=== PATIENT | female | born 1930 | race Caucasian/White ===

== ENCOUNTER → 2016-12-22 | Outpatient (CLI) | payer MEDICARE ==
[~2016-12-22] MED LIST: /PANT40TA OR; ALLO300T OR; ASPI325T28 PO; ATEN25TA OR; BABY81CH OR; CEFT1INJ3 INJ; LASI40TA OR; LASI40TA PO; LEVA1TAB2 PO; LEVA250T IV; Levofloxacin IV; METF500T13 PO; PANT40TA2 PO; PLAV1TAB2 PO; PLAV75TA2 OR; PRED5TA PO; PRED5TAB PO; VITA200038 PO; ZOLP10TA2 PO; ZYLO100T OR
--- NOTE | 2016-12-22 17:25 | REP ---
CT of the chest without IV contrast: Comparisons are 10/14/2015 02/28/2011. There is a spiculated nodule in the apex of the left lung, not significantly changed from 10/14/2015 is slightly larger than 02/28/2011. There is a new 5 mm density posteriorly in the left upper lobe on image 25, not present on the prior studies. There is a subtle ground-glass density in the superior segment of the left lower lobe on image 26, unchanged from 10/14/2015, not present on 2010. There is a 5 mm nodule in the left lower lobe on image 37, unchanged from 10/14/2015 but not present on 02/28/2011. There is a new focal density in the posterior basilar segment right lower lobe on image 63 measuring 3.1 cm, nonspecific, mass versus subsegmental infiltrate versus atelectasis. There is no mediastinal or axillary add an the. The study is insensitive for hilar adenopathy in the absence of IV contrast. Thoracic aorta is unremarkable. Cardiac size is normal. Upper abdomen: There is a focal subcapsular 2.4 cm low density lesion in the dome of the liver laterally, not present previously. There are multiple small gallbladder calculi. There are calcifications in the body of the pancreas, unchanged, possibly from prior pancreatitis. The pancreas is otherwise unremarkable. Visualized portion of the spleen is unremarkable. There is no adrenal mass. Impression: Lung nodules as described. The new hypodensity in the dome of the liver laterally. Signed by Jeremias Jordan MD 12/22/2016 05:16 P
== END ==
LOC: M RAD 14:46
PROVIDERS: ATTEND Internal Medicine Pulmonary Disease
DX: R91.8 Other nonspecific abnormal finding of lung field (principal); K76.89 Other specified diseases of liver

== ENCOUNTER → 2017-02-12 | Outpatient (CLI) | payer MEDICARE ==
[2017-02-12 16:09] LABS: MEAN CORPUSCULAR HGB CONC 31.7 g/dl (32.0-36.5); MEAN CORPUSCULAR VOLUME 94.4 fl (80.0-96.0); PLATELET COUNT, AUTOMATED 271 10^3/uL (150-450); RED CELL DISTRIBUTION WIDTH 14.9 % (11.5-14.5)
[2017-02-12 16:33] LABS: ALBUMIN 3.4 GM/DL (3.2-5.2); ALBUMIN/GLOBULIN RATIO 1.13 (1.00-1.93); BILIRUBIN,TOTAL 0.7 MG/DL (0.2-1.0); CALCIUM LEVEL 8.8 MG/DL (8.8-10.2); CREATININE FOR GFR 1.23 MG/DL (0.55-1.02); GLOMERULAR FILTRATION RATE 43.9 (>32); PERCENT SATURATION 17.6 % (13.2-45.0); POTASSIUM SERUM 4.2 MEQ/L (3.5-5.1); THYROXINE (T4) 6.7 UG/DL (4.5-12.0); TOTAL PROTEIN 6.4 GM/DL (6.4-8.2)
== END ==
LOC: M LAB 14:10
PROVIDERS: ATTEND Family Medicine
DX: D64.9 Anemia, unspecified (principal); E03.9 Hypothyroidism, unspecified; Z79.899 Other long term (current) drug therapy

== ENCOUNTER 2017-02-23 12:06 | Inpatient (IN) | payer MEDICARE ==
[~2017-02-23] VITALS: Ht 162.6 cm; Wt 71.1 kg
[2017-02-23] MEDS: NYSTATIN 100,000 UNITS/GM TOPICAL PWD 15 GM TOP SCH (09:00)
[2017-02-23] MEDS ORDERED: NS 1,000 ML IV SCH ×2 (12:15→19:00)
[2017-02-23] MEDS ORDERED: NS 500 ML IV ONE ×2 (12:15→14:15)
[2017-02-23] MEDS ORDERED: LORA1TAB12 PO (12:37)
[2017-02-23] MEDS ORDERED: CIPR500T3 PO (12:37)
[2017-02-23] MEDS ORDERED: DONETAB5 PO (12:37)
[2017-02-23] MEDS ORDERED: PERCOCET PO (12:37)
--- NOTE | 2017-02-23 12:40 | REP ---
Clinical: Altered mental status. Comparison: 10/16/2013. Findings: Age-related atrophy and microvascular ischemic changes are appreciated. The ventricles and sulci are symmetric. Swan-white differentiation is maintained. There is no evidence for acute intracranial hemorrhage, mass/mass effect, pathology or infarction. No extra-axial fluid collection. Calvarium is intact. Paranasal sinuses and mastoid air cells are clear. Impression: Age related atrophy and microvascular ischemic changes. No acute intracranial hemorrhage, infarction, or mass/mass effect. Signed by Yaw Conti MD 02/23/2017 12:31 P
[2017-02-23 12:58] LABS: MEAN CORPUSCULAR HEMOGLOBIN 29.6 pg (27.0-33.0); MEAN CORPUSCULAR VOLUME 92.5 fl (80.0-96.0); PLATELET COUNT, AUTOMATED 260 10^3/uL (150-450); RED CELL DISTRIBUTION WIDTH 14.2 % (11.5-14.5)
[2017-02-23 13:00] LABS: VENOUS BASE EXCESS 0.2 (-2.0-2.0); VENOUS O2 SATURATION 42.3 % (60.0-80.0); VENOUS PARTIAL PRESSURE CO2 51.4 mmHg (38.0-50.0); VENOUS STANDARD HCO3 23.4 MEQ/L; VENOUS TOTAL CO2 28.4 MEQ/L (24.0-28.0)
[2017-02-23 13:20] LABS: OSMOLALITY SERUM 291 MOSM/KG (280-301)
--- NOTE | 2017-02-23 13:22 | REP ---
Clinical: Trauma. Technique: Frontal view of the pelvis with neutral and frog lateral views of the right hip. Comparison: 03/08/2016. Findings: Age-related degenerative changes to the lumbosacral spine, pelvis and hips similar to prior examination. No acute fracture or dislocation. Impression: Degenerative changes. No acute fracture or dislocation. Signed by Yaw Conti MD 02/23/2017 01:13 P
--- NOTE | 2017-02-23 13:23 | REP ---
Clinical: Altered mental status and fall/trauma . Comparison: 10/14/2015 . Findings: The mediastinum and cardiac silhouette are stable and within normal limits for portable technique. Evidence of prior sternotomy and CABG/coronary stenting . The lung dickson are clear without acute consolidation, effusion, or pneumothorax. Skeletal structures are intact. Impression: No acute cardiopulmonary process appreciated. Signed by Yaw Conti MD 02/23/2017 01:14 P
[2017-02-23] MEDS ORDERED: ASPI1TAB PO (13:27)
[2017-02-23 13:36] LABS: ALBUMIN 3.2 GM/DL (3.2-5.2); ALBUMIN/GLOBULIN RATIO 1.14 (1.00-1.93); ALKALINE PHOSPHATASE 55 U/L (45-117); ALT/SGPT 12 U/L (12-78); ANION GAP 10 MEQ/L (8-16); AST/SGOT 15 U/L (7-37); BILIRUBIN,DIRECT 0.2 MG/DL (0.0-0.2); BILIRUBIN,TOTAL 0.9 MG/DL (0.2-1.0); BLOOD UREA NITROGEN 10 MG/DL (7-18); CALCIUM LEVEL 8.8 MG/DL (8.8-10.2); CARBON DIOXIDE LEVEL 26 MEQ/L (21-32); CHLORIDE LEVEL 106 MEQ/L (98-107); CREATININE FOR GFR 0.97 MG/DL (0.55-1.02); GLOMERULAR FILTRATION RATE 57.7 (>32); GLUCOSE, FASTING 111 MG/DL (83-110); POTASSIUM SERUM 3.7 MEQ/L (3.5-5.1); SODIUM LEVEL 142 MEQ/L (136-145)
[2017-02-23 14:07] LABS: ADD MANUAL DIFFER YES; BLASTS POS FLAG; DIFF SLIDE NUMBER 113; POSITIVE DIFF POS FLAG; POSITIVE MORPH POS FLAG; WBC SCAT POS FLAG; WHITE BLOOD COUNT 20.6 10^3/uL (4.0-10.0)
[2017-02-23 14:17] LABS: SMUDGE CELLS 2+
[2017-02-23 14:19] LABS: ANISOCYTOSIS 1+
[2017-02-23] MEDS ORDERED: ISOVUE-370 76% 100ML VIAL (Q9967) As Ordered ONE (16:58)
--- NOTE | 2017-02-23 17:32 | REP ---
Clinical: Acute groin pain. Technique: Axial contrast enhanced images from the lung bases to the pubic symphysis using 100 ml Isovue 370 intravenous contrast material with coronal and sagittal re-formations. Findings: Lung bases demonstrate minimal right basilar atelectasis. Fatty infiltration to the liver noted with 2.5 cm hemangioma at the periphery approaching the dome. Spleen, pancreas, bilateral adrenal glands and right kidney are normal. Left kidney demonstrates mild chronic appearing cortical scarring. No hydronephrosis or nephrolithiasis. Cholelithiasis noted without acute cholecystitis. The enteric system is without obstruction or acute inflammatory process. Scattered sigmoid diverticula noted without acute diverticulitis. Pelvis demonstrates normal bladder and evidence for prior hysterectomy. Atherosclerotic changes of the aorta without aneurysm or dissection. No ascites. No free air. No obvious adenopathy. No evidence for inguinal adenopathy or hernia. Skeletal structures demonstrate degenerative changes without focal osseous abnormality. Impression: 1. Mild right basilar atelectasis. 2. Cholelithiasis. 3. 2.5 cm hepatic hemangioma. 4. Further chronic changes as described above. No acute abdominopelvic pathology appreciated. Signed by Yaw Conti MD 02/23/2017 05:23 P
[2017-02-23] MEDS ORDERED: PATIENT COMMENT (18:30)
[2017-02-23] MEDS ORDERED: DEXTROSE 50% 50 ML SYRINGE IV PRN (18:45)
[2017-02-23] MEDS ORDERED: ONDANSETRON 4MG/2ML VIAL (J2405) IV PRN (18:45)
[2017-02-23] MEDS ORDERED: GLUCAGON FOR INJ 1 MG VIAL (J1610) SC PRN (18:45)
[2017-02-23] MEDS ORDERED: GLUCOSE 4 GM CHEW TABLET PO PRN (18:45)
[2017-02-23] MEDS ORDERED: ACETAMINOPHEN TAB 650MG DOSE (2X325MG) PO PRN (18:45)
[2017-02-23 19:37] LABS: METHADONE URINE NEGATIVE (NEGATIVE)
[2017-02-23] MEDS: HumaLOG INSULIN (NovoLOG) PER UNIT SC SCH (21:00)
[2017-02-23 22:01] VITALS: BP 163/72
[2017-02-23] MEDS: SENOKOT S TAB PO SCH (22:37)
[2017-02-23] MEDS: zolPIDEM TARTRATE 10MG TAB PO SCH (22:37)
[2017-02-23] MEDS: CEFTRIAXONE SOD 1 GM in APPROPRIATE DILUENT 1 EA IV SCH (22:39)
[2017-02-23 23:36] VITALS: BP 121/56
[2017-02-24] VITALS (14 sets, daily range): BP systolic 132–145; BP diastolic 60–66; O2SAT 95–97
[2017-02-24] MEDS: OLOPATADINE 0.1% OPHTH SOL 5ML(PATANOL) OU SCH ×3 (00:39→17:32)
--- NOTE | 2017-02-24 02:09 | HPE ---
DATE OF ADMISSION: 02/23/2017 PRIMARY CARE PROVIDER: Dr. Cesar Carter. SUPERVISOR CELL OPERATION: Dr. Mcdowell. EXTRUDER: Dr. Delvalle and Dr. Tovar at [facility]. CHIEF COMPLAINT: Altered mental status. HISTORY OF PRESENT ILLNESS: This is an 86-year-old female patient with underlying medical history of chronic lymphocytic leukemia, chronically leukocytosis in the 20s, diabetes type 2 on metformin, coronary arterial disease with coronary artery bypass graft (CABG) years ago and seven stents, polymyalgia rheumatica, fibromyalgia, gout, diastolic congestive heart failure, transient ischemic attack (TIA), gastroesophageal reflux disease (GERD), hypertension, dyslipidemia, and also obstructive sleep apnea. Baseline patient ambulating intermittently with a walker, lives at home alone with daughter 10 minutes away. Her 3 years ago. Patient also receives Meals On Wheels and also microwaves her food, able to take care of her showers and toilets and dressing. As per family, over the past 3 weeks, patient has been progressively getting weaker and sleeping a lot more. Also eating less. Furthermore, patient has been talking a lot about her , stating that she has conversations with her . In the emergency room, patient reported having conversations with her once every 3-4 weeks since he has , but as per family all this has started about the past 3 weeks. Earlier today, in the morning, patient was not answering her calls and she was found down on the floor in the kitchen at about 10 a.m. Patient stated that she did not fall, she just felt tired and subsequently she laid on the floor and she also stated that her , who has 3 years ago in February as well, told her to lay on the floor. Patient denies any trauma or injury, but for the past 2 weeks has been reporting right groin pain, worsened with movement, relieved with rest. Patient has also been sitting a lot on the chair. Furthermore, patient stated that her is actually in [place] for the past 2-3 weeks. When I approached the patient regarding that, patient just stated that her 3 years ago, patient was speechless and a bit confused. Denies history of seizure or any previous episode. No focal weakness. Denies any chest pain, pressure or discomfort, fevers or chills. Emergency department (ED) noted foul-smelling urine. Denies any fevers, chills, sick contact, chest pain, pressure or discomfort, nausea, vomiting, abdominal pain, diarrhea, constipation. No other weakness reported. PAST MEDICAL HISTORY: 1. Obstructive sleep apnea on continuous positive airway pressure (CPAP) at home. 2. Chronic lymphocytic leukemia (CLL). 3. Diabetes type 2. 4. Coronary arterial disease with CABG and stents. 5. Polymyalgia rheumatica. 6. Fibromyalgia. 7. Gout. 8. Diastolic congestive heart failure. 9. History of TIA. 10. GERD. 11. Hypertension. 12. Dyslipidemia. PAST SURGICAL HISTORY: 1. CABG. 2. Hysterectomy. 3. Appendectomy. 4. Cardiac stents several times, all at [facility]. SOCIAL HISTORY: Former smoker, quit many years ago. Denies illicit drug use or alcohol use. FAMILY HISTORY: Noncontributory. ALLERGIES: To STATIN. REVIEW OF SYSTEMS: Reported right groin pain. All other review of systems negative. In the emergency room, patient was able to ambulate. HOME MEDICATIONS: - Plavix 75 mg by mouth daily - donepezil 5 mg by mouth daily - Lasix 40 mg by mouth daily - Ativan 1 mg by mouth as needed - metformin 500 mg by mouth daily - Protonix 40 mg by mouth daily - Ambien 10 mg by mouth nightly PHYSICAL EXAMINATION: VITAL SIGNS: Temperature 97.5, pulse 84, respirations 18, blood pressure 165/85, pulse oximetry 93% on room air. GENERAL: Patient alert, oriented times three in no acute distress. HEENT: Normocephalic, atraumatic. PULMONARY: Bilaterally clear to auscultation. CARDIAC: Regular S1, S2. ABDOMEN: Soft, nontender, positive bowel sounds. EXTREMITIES: Bilateral upper extremity symmetrical strength. Bilateral lower extremity seems a bit weaker. No edema bilateral lower extremities. NEUROLOGICAL: Cranial nerves II-XII grossly intact. Motor strength seems to be symmetrical bilaterally. Sensation to light touch intact. Finger to nose intact. PSYCHIATRIC: Patient denies depression. Reports feeling sad that her has . EKG sinus rhythm at 82, no ST segment changes. CT of the head within normal limits. LABORATORY: WBC 20.6, hemoglobin and hematocrit 13.1/40.9, platelets 260. Chemistry: Sodium 142, potassium 3.7, chloride 106, bicarbonate 26, BUN 10, creatinine 0.91. Ammonia negative. TSH negative. ASSESSMENT AND PLAN: This is an 86-year-old female patient with underlying medical history of obstructive sleep apnea on continuous positive airway pressure (CPAP), chronic lymphocytic leukemia (CLL), diabetes type 2 on metformin, non-insulin dependent, coronary arterial disease with coronary artery bypass graft (CABG) and stents, polymyalgia rheumatica, fibromyalgia, gout, diastolic congestive heart failure, questionable history of transient ischemic attack (TIA), gastroesophageal reflux disease (GERD), hypertension, dyslipidemia, found down on the floor. Denies history of falling, with altered mental status and delusional thoughts. 1. Altered mental status. Possible encephalopathy secondary to urinary tract infection given patient's urine is borderline positive versus delusional thoughts and delirium associated with dementia versus TIA, but symptom is highly inconsistent with TIA. Case discussed with Dr. Bobby and Dr. Reddy. Telemetry monitoring, neurologic checks, MRI. Will give the patient a trial of Rocephin, followup cultures. Intravenous (IV) fluids for gentle hydration. Will monitor closely. Thyroid function appreciated. If patient's condition is agitated, will give the patient, as per Dr. Bobby, Haldol 1 mg by mouth twice a day or will consider Risperdal as well if Haldol is ineffective. Will hold benzodiazepine at this time. Monitor patient closely. Will get urine toxicology (U-tox). 2. CLL. Baseline leukocytosis. Continue to monitor. 3. Type 2 diabetes. Holding all medication. Will give insulin according to protocol if needed. Consistent carbohydrate diet. 4. Coronary arterial disease with history of stents and CABG. Will get records from [facility] given will get MRI for the patient will require stent positions that information from [facility]. Will obtain old records. Continue Plavix. Monitor blood pressure. Adjust as needed. 5. Urinary tract infection (UTI). Continue Rocephin. Followup cultures. 6. Dementia. Continue home medication. 7. Polymyalgia rheumatica and fibromyalgia. Continue to monitor. Pain medication as needed. 8. Diastolic congestive heart failure. Holding Lasix given patient is a bit hypovolemic at this time, is likely due to dehydration. Will restart as needed. Strict intake and output (I and O), daily weight. 9. GERD. Continue proton pump inhibitor (PPI). 10. Hypertension. Monitor blood pressure. 11. Dyslipidemia. Diet control, outpatient followup. 12. Deep venous thrombosis (DVT) prophylaxis. Lovenox subcutaneously. DISPOSITION PLANNING: Pending clinical improvement, social work, physical therapy. Will get additional workup including U-tox, RPR, MRI, neurologic checks, telemetry monitoring.
[2017-02-24 05:22] LABS: MEAN CORPUSCULAR HEMOGLOBIN 29.5 pg (27.0-33.0); MEAN CORPUSCULAR HGB CONC 31.9 g/dl (32.0-36.5); MEAN CORPUSCULAR VOLUME 92.4 fl (80.0-96.0); PLATELET COUNT, AUTOMATED 251 10^3/uL (150-450); RED CELL DISTRIBUTION WIDTH 14.4 % (11.5-14.5)
[2017-02-24 05:27] LABS: ADD MANUAL DIFFER YES; BLASTS POS FLAG; DIFF SLIDE NUMBER 73; POSITIVE DIFF POS FLAG; POSITIVE MORPH POS FLAG; WBC SCAT POS FLAG; WHITE BLOOD COUNT 16.7 10^3/uL (4.0-10.0)
[2017-02-24 05:40] LABS: ALBUMIN 2.6 GM/DL (3.2-5.2); ALBUMIN/GLOBULIN RATIO 0.96 (1.00-1.93); BILIRUBIN,TOTAL 0.8 MG/DL (0.2-1.0); CALCIUM LEVEL 8.2 MG/DL (8.8-10.2); CREATININE FOR GFR 0.97 MG/DL (0.55-1.02); GLOMERULAR FILTRATION RATE 57.7 (>32); MAGNESIUM LEVEL 1.5 MG/DL (1.8-2.4); TOTAL PROTEIN 5.3 GM/DL (6.4-8.2)
[2017-02-24 06:03] LABS: BASOPHILS 1 % (0-4)
[2017-02-24 06:11] LABS: SMUDGE CELLS 2+
--- NOTE | 2017-02-24 06:11 | ECGEPIP ---
Stationary ECG Study [facility] - ED Test Date: 2017-02-23 Pat Name: ABRIL BROWN Department: Room: - Gender: F Manufacturing Area Manager: SAYDA : 1930 Requested By: Louise Chan Order Number: [id number] Reading MD: Maurice Cerrato Measurements Intervals [place] Rate: 82 P: HI: 0 QRS: 0 QRSD: 85 T: 20 QT: 394 QTc: 462 Interpretive Statements SINUS RHYTHM WITH PACs NONSPECIFIC ST & T-WAVE ABNORMALITY BASELINE ARTIFACT AFFECTS INTERPRETATION SIMILAR TO 03/08/16 Electronically Signed On 02-24-2017 6:11:07 EST by Maurice Cerrato
[2017-02-24] MEDS ORDERED: MAG SULF 1GM/100ML (MAG RUN) 1 GM in APPROPRIATE DILUENT 1 EA IV ONE (06:30)
[2017-02-24] MEDS: HumaLOG INSULIN (NovoLOG) PER UNIT SC SCH ×4 (07:54→21:00)
[2017-02-24] MEDS: ENOXAPARIN 40 MG/0.4 ML SYRINGE (J1650) SC SCH (08:00)
[2017-02-24] MEDS: NYSTATIN 100,000 UNITS/GM TOPICAL PWD 15 GM TOP SCH (08:00)
[2017-02-24] MEDS: DONEPEZIL 5 MG TAB PO SCH (08:01)
[2017-02-24] MEDS: CLOPIDOGREL 75 MG TAB PO SCH (08:01)
[2017-02-24] MEDS: PANTOPRAZOLE 40MG TAB (PROTONIX) PO SCH (08:01)
[2017-02-24] MEDS: SENOKOT S TAB PO SCH ×2 (08:01→20:55)
--- NOTE | 2017-02-24 11:21 | IPNPDOC ---
Subjective Date Seen The patient was seen on 02/24/17. Subjective Chief Complaint/HPI The patient is a 86-year-old female admitted with a reason for visit of AMS. Events since last encounter says does not have any appetite , has been feeling very weak for about a month . Yesterday she was feeling so weak that she felt she was going to pass out so lay down on the floor. denies any fever or chills, denies any dysuria, says has diarrhea every day and has to take imodium everyday. denies hearing any voices. say her gums have been hurting for about a week . She has a dental appointment coming up to remove the failed root canal on the upper right jaw. denies any chest pain or sob , denies any cough or phlegm or FLU like symptoms. Objective Physical Examination General Exam: Positive: Alert, Cooperative, No Acute Distress Eye Exam: Positive: PERRLA, Conjunctiva & lids normal, EOMI, Negative: Sclera icteric ENT Exam: Positive: Atraumatic, Mucous membr. moist/pink, Pharynx Normal Neck Exam: Positive: Supple, Negative: JVD, thyromegaly Chest Exam: Positive: Clear to auscultation, Normal air movement Heart Exam: Positive: Rate Normal, Regular Rhythm, Normal S1, Normal S2, Negative: Murmurs, Rubs Telemetry: Positive: No significant arrhythmia Abdomen Exam: Positive: Normal bowel sounds, Soft, Negative: Tenderness, Hepatospenomegaly Extremity Exam: Positive: Normal pulses, Negative: Clubbing, Cyanosis, Edema Assessment /Plan Problems (1) Delirium Status: Acute Problem Text: due to possible infection Vs dementia with psychosis most probably age related and chronic microvascular disease related Dementia . Ruling out secondary causes. TSH normal , RPR pending. CT brain with age related atrophy. MRI pending (2) UTI (urinary tract infection) Status: Acute Problem Text: continue ceftriaxone (3) CLL (chronic lymphocytic leukemia) Onset Date: 10/17/2013 Status: Chronic (4) ALLYN on CPAP Status: Chronic (5) CAD (coronary artery disease) Status: Chronic Problem Text: status post CABg and stenting in the past no issues at present (6) Polymyalgia rheumatica Status: Chronic (7) Diabetes Status: Chronic (8) Hypertension Status: Chronic (9) Hyperlipidemia Status: Chronic (10) Gout Status: Chronic (11) Diastolic CHF Status: Chronic (12) GERD (gastroesophageal reflux disease) Status: Chronic (13) Fibromyalgia Status: Chronic (14) Periodontitis Status: Acute Problem Text: patient already on ceftriaxone will add metronidazole for anaerobic coverage. Plan/VTE VTE Prophylaxis Ordered?: Yes VS, I&O, 24H, Fishbone Vital Signs/I&O Vital Signs Date Time Temp Pulse Resp B/P (MAP) Pulse Ox O2 Delivery O2 Flow Rate FiO2 02/24/17 08:05 98.9 73 24 142/65 (90) 94 Room Air Laboratory Data 24H LABS Laboratory Tests 2 02/23/17 12:50: White Blood Count 20.6H, Red Blood Count 4.42, Hemoglobin 13.1, Hematocrit 40.9 , Mean Corpuscular Volume 92.5, Mean Corpuscular Hemoglobin 29.6, Mean Corpuscular Hemoglobin Concent 32.0, Red Cell Distribution Width 14.2, Platelet Count 260, Lymphocytes # (Auto) , Nucleated Red Blood Cells % (auto) 0.0, Neutrophils 22L, Lymphocytes (Manual) 15L, Monocytes (Manual) 4, Atypical Lymphocytes 59H, Smudge Cells 2+, Platelet Estimate NORMAL, Anisocytosis 1+, Blood Gas Bicarbonate Standard 23.4, Venous Blood pH 7.336, Venous Blood Partial Pressure CO2 51.4H, Venous Blood Partial Pressure O2 25.0L, Venous Blood Total Carbon Dioxide 28.4H, Venous Blood HCO3 26.9, Venous Blood Oxygen Saturation 42.3L, Venous Blood Base Excess 0.2, Anion Gap 10, Glomerular Filtration Rate 57.7, Osmolality 291, Lactic Acid Level 1.2, Calcium Level 8.8, Aspartate Amino Transf (AST/SGOT) 15, Alanine Aminotransferase (ALT/SGPT) 12, Alkaline Phosphatase 55, Total Bilirubin 0.9, Direct Bilirubin 0.2, Ammonia 11, Total Creatine Kinase 233H, Creatine Kinase MB 1.2, Creatine Kinase MB Relative Index 0.51, Troponin I < 0.02, Total Protein 6.0L, Albumin 3.2, Albumin/ Globulin Ratio 1.14, Thyroid Stimulating Hormone (TSH) 1.970 02/23/17 13:10: Bedside Glucose (Misc Panel) 107 02/23/17 16:49: Urine Appearance CLOUDYH, Urine Color YELLOW, Urine pH 5.0, Urine Specific [place] 1.017, Urine Protein NEGATIVE, Urine Glucose (UA) NEGATIVE, Urine Ketones 1+H, Urine Urobilinogen 0.2, Urine Bilirubin NEGATIVE, Urine Leukocyte Esterase 1+H, Urine Blood NEGATIVE, Urine Nitrite NEGATIVE, Urine WBC (Auto) 9H , Urine RBC (Auto) 27H, Urine Hyaline Casts (Auto) 0, Urine Bacteria (Auto) 1+H , Urine Squamous Epithelial Cells 6, Urine Amorphous Sediment SMALLH, Urine Mucus (Auto) SMALL, Urine Sperm (Auto) , Urine Amphetamines Screen NEGATIVE, Urine Benzodiazepines Screen NEGATIVE, Urine Opiates Screen NEGATIVE, Urine Methadone Screen NEGATIVE, Urine Barbiturates Screen NEGATIVE, Urine Phencyclidine Screen NEGATIVE, Urine Cocaine Metabolite Screen NEGATIVE, Urine Cannabinoids Screen NEGATIVE 02/23/17 18:54: 02/23/17 18:59: Total Creatine Kinase 320H, Creatine Kinase MB 1.1, Creatine Kinase MB Relative Index 0.34, Troponin I < 0.02 02/23/17 22:35: Bedside Glucose (Misc Panel) 121H 02/24/17 04:39: White Blood Count 16.7H, Red Blood Count 4.07, Hemoglobin 12.0, Hematocrit 37.6 , Mean Corpuscular Volume 92.4, Mean Corpuscular Hemoglobin 29.5, Mean Corpuscular Hemoglobin Concent 31.9L, Red Cell Distribution Width 14.4, Platelet Count 251, Lymphocytes # (Auto) , Nucleated Red Blood Cells % (auto) 0.0, Neutrophils 24L, Lymphocytes (Manual) 39, Monocytes (Manual) 4, Basophils ( Manual) 1, Atypical Lymphocytes 32H, Smudge Cells 2+, Platelet Estimate NORMAL, Red Blood Cell Morphology NORMAL, Anion Gap 6L, Glomerular Filtration Rate 57.7 , Blood Urea Nitrogen 9, Creatinine 0.97, Sodium Level 140, Potassium Level 4.0 , Chloride Level 109H, Carbon Dioxide Level 25, Calcium Level 8.2L, Aspartate Amino Transf (AST/SGOT) 11, Alanine Aminotransferase (ALT/SGPT) 10L, Alkaline Phosphatase 42L, Total Bilirubin 0.8, Total Protein 5.3L, Albumin 2.6L, Magnesium Level 1.5L, Albumin/Globulin Ratio 0.96L CBC/BMP Laboratory Tests 02/23/17 12:50 Red Blood Count 4.42, Mean Corpuscular Volume 92.5, Mean Corpuscular Hemoglobin 29.6, Mean Corpuscular Hemoglobin Concent 32.0, Red Cell Distribution Width 14.2 , Lymphocytes # (Auto) 02/24/17 04:39 Red Blood Count 4.07, Mean Corpuscular Volume 92.4, Mean Corpuscular Hemoglobin 29.5, Mean Corpuscular Hemoglobin Concent 31.9 L, Red Cell Distribution Width 14.4, Lymphocytes # (Auto) , Calcium Level 8.2 L, Aspartate Amino Transf (AST/ SGOT) 11, Alanine Aminotransferase (ALT/SGPT) 10 L, Alkaline Phosphatase 42 L, Total Bilirubin 0.8, Total Protein 5.3 L, Albumin 2.6 L Microbiology Microbiology 02/23/17 Blood Culture, Received Pending 02/23/17 Blood Culture, Received Pending 02/23/17 Urine Culture, Received Pending ANDREWS GARCIA MD Feb 24, 2017 11:21
[2017-02-24] MEDS: metroNIDAZOLE (FLAGYL) 500 MG TAB PO SCH ×2 (14:24→20:54)
[2017-02-24] MEDS: CEFTRIAXONE SOD 1 GM in APPROPRIATE DILUENT 1 EA IV SCH (20:54)
[2017-02-24] MEDS: zolPIDEM TARTRATE 10MG TAB PO SCH (20:54)
[2017-02-25 06:00] VITALS: BP 139/80
[2017-02-25] MEDS: metroNIDAZOLE (FLAGYL) 500 MG TAB PO SCH ×3 (06:05→20:52)
[2017-02-25 06:31] LABS: MEAN CORPUSCULAR HEMOGLOBIN 29.9 pg (27.0-33.0); MEAN CORPUSCULAR HGB CONC 32.1 g/dl (32.0-36.5); PLATELET COUNT, AUTOMATED 251 10^3/uL (150-450); RED CELL DISTRIBUTION WIDTH 14.3 % (11.5-14.5)
[2017-02-25 06:43] LABS: ADD MANUAL DIFFER YES; BLASTS POS FLAG; DIFF SLIDE NUMBER 52; POSITIVE DIFF POS FLAG; POSITIVE MORPH POS FLAG; WBC SCAT POS FLAG; WHITE BLOOD COUNT 14.5 10^3/uL (4.0-10.0)
[2017-02-25 06:45] LABS: ALBUMIN 2.7 GM/DL (3.2-5.2); ALBUMIN/GLOBULIN RATIO 0.9 (1.00-1.93); BILIRUBIN,TOTAL 0.5 MG/DL (0.2-1.0); CALCIUM LEVEL 8.8 MG/DL (8.8-10.2); CREATININE FOR GFR 0.98 MG/DL (0.55-1.02); MAGNESIUM LEVEL 1.9 MG/DL (1.8-2.4); POTASSIUM SERUM 3.7 MEQ/L (3.5-5.1); TOTAL PROTEIN 5.7 GM/DL (6.4-8.2)
[2017-02-25 06:53] LABS: EOSINOPHILS 4 % (0-5)
[2017-02-25 06:54] LABS: SMUDGE CELLS 2+
[2017-02-25] MEDS: HumaLOG INSULIN (NovoLOG) PER UNIT SC SCH ×4 (07:53→20:53)
[2017-02-25] MEDS: LACTOBACILLUS ACIDOPHILUS CAP (BACID) PO SCH ×2 (08:02→20:52)
[2017-02-25] MEDS: ENOXAPARIN 40 MG/0.4 ML SYRINGE (J1650) SC SCH (08:02)
[2017-02-25] MEDS: DONEPEZIL 5 MG TAB PO SCH (08:02)
[2017-02-25] MEDS: CLOPIDOGREL 75 MG TAB PO SCH (08:02)
[2017-02-25] MEDS: PANTOPRAZOLE 40MG TAB (PROTONIX) PO SCH (08:02)
[2017-02-25] MEDS: OLOPATADINE 0.1% OPHTH SOL 5ML(PATANOL) OU SCH ×2 (08:03→17:28)
[2017-02-25] MEDS: NYSTATIN 100,000 UNITS/GM TOPICAL PWD 15 GM TOP SCH (08:03)
--- NOTE | 2017-02-25 11:13 | IPNPDOC ---
Subjective Date Seen The patient was seen on 02/25/17. Subjective Chief Complaint/HPI The patient is a 86-year-old female admitted with a reason for visit of AMS. Events since last encounter feeling much better this morning, her gum pain is better , said ate a big breakfast today . It was much more than what she usually eats at home. no fever or chills, no chest pain or sob , no confusion , no nausea or vomiting or diarrhea, no abdominal pain , Objective Physical Examination General Exam: Positive: Alert, Cooperative, No Acute Distress Eye Exam: Positive: PERRLA, Conjunctiva & lids normal, EOMI, Negative: Sclera icteric ENT Exam: Positive: Atraumatic, Mucous membr. moist/pink, Pharynx Normal Neck Exam: Positive: Supple, Negative: JVD, thyromegaly Chest Exam: Positive: Clear to auscultation, Normal air movement Heart Exam: Positive: Rate Normal, Regular Rhythm, Normal S1, Normal S2, Negative: Murmurs, Rubs Telemetry: Positive: No significant arrhythmia Abdomen Exam: Positive: Normal bowel sounds, Soft, Negative: Tenderness, Hepatospenomegaly Extremity Exam: Positive: Normal pulses, Negative: Clubbing, Cyanosis, Edema Assessment /Plan Problems (1) Periodontitis Status: Acute Problem Text: continue ceftriaxone and metronidazole. (2) Acute metabolic encephalopathy Status: Acute Problem Text: possible due to infection. source possibly dental rather than UTI. now resolved. has underlying probably age related and chronic microvascular disease related Dementia TSH normal , RPR normal CT brain with age related atrophy. MRI pending (3) UTI (urinary tract infection) Status: Acute Problem Text: unlikely UTI as no symptoms and only 9 wbc in urine , no fever. but will continue with ceftriaxone till cultures are back. (4) CLL (chronic lymphocytic leukemia) Onset Date: 10/17/2013 Status: Chronic (5) ALLYN on CPAP Status: Chronic (6) CAD (coronary artery disease) Status: Chronic Problem Text: status post CABg and stenting in the past no issues at present (7) Polymyalgia rheumatica Status: Chronic (8) Diabetes Status: Chronic (9) Hypertension Status: Chronic (10) Hyperlipidemia Status: Chronic (11) Gout Status: Chronic (12) Diastolic CHF Status: Chronic (13) GERD (gastroesophageal reflux disease) Status: Chronic (14) Fibromyalgia Status: Chronic (15) Dementia Status: Chronic Problem Text: continue donepezil Plan/VTE VTE Prophylaxis Ordered?: Yes VS, I&O, 24H, Fishbone Vital Signs/I&O Vital Signs Date Time Temp Pulse Resp B/P (MAP) Pulse Ox O2 Delivery O2 Flow Rate FiO2 02/25/17 06:00 97.2 84 17 139/80 (99) 90 Room Air I&O- Last 24 Hours up to 6 AM 02/26/17 06:00 Intake Total 120 ml Output Total 0 ml Balance 120 ml Laboratory Data 24H LABS Laboratory Tests 2 02/24/17 11:21: Bedside Glucose (Misc Panel) 97 02/24/17 17:01: Bedside Glucose (Misc Panel) 103 02/24/17 20:36: Bedside Glucose (Misc Panel) 112H 02/25/17 05:43: White Blood Count 14.5H, Red Blood Count 4.15, Hemoglobin 12.4, Hematocrit 38.6 , Mean Corpuscular Volume 93.0, Mean Corpuscular Hemoglobin 29.9, Mean Corpuscular Hemoglobin Concent 32.1, Red Cell Distribution Width 14.3, Platelet Count 251, Lymphocytes # (Auto) , Nucleated Red Blood Cells % (auto) 0.0, Neutrophils 15L, Lymphocytes (Manual) 64H, Monocytes (Manual) 4, Eosinophils ( Manual) 4, Atypical Lymphocytes 13H, Smudge Cells 2+, Platelet Estimate NORMAL, Red Blood Cell Morphology NORMAL, Anion Gap 9, Glomerular Filtration Rate 57.0, Blood Urea Nitrogen 7, Creatinine 0.98, Sodium Level 141, Potassium Level 3.7, Chloride Level 109H, Carbon Dioxide Level 23, Calcium Level 8.8, Aspartate Amino Transf (AST/SGOT) 15, Alanine Aminotransferase (ALT/SGPT) 9L, Alkaline Phosphatase 49, Total Bilirubin 0.5, Total Protein 5.7L, Albumin 2.7L, Magnesium Level 1.9, Albumin/Globulin Ratio 0.90L CBC/BMP Laboratory Tests 02/25/17 05:43 Red Blood Count 4.15, Mean Corpuscular Volume 93.0, Mean Corpuscular Hemoglobin 29.9, Mean Corpuscular Hemoglobin Concent 32.1, Red Cell Distribution Width 14.3 , Lymphocytes # (Auto) , Calcium Level 8.8, Aspartate Amino Transf (AST/SGOT) 15 , Alanine Aminotransferase (ALT/SGPT) 9 L, Alkaline Phosphatase 49, Total Bilirubin 0.5, Total Protein 5.7 L, Albumin 2.7 L Microbiology Microbiology 02/23/17 Blood Culture - Preliminary, Resulted No growth after 24 hours . All specim... 02/23/17 Blood Culture - Preliminary, Resulted No growth after 24 hours . All specim... 02/23/17 Urine Culture, Received Pending ANDREWS GARCIA MD Feb 25, 2017 11:13
--- NOTE | 2017-02-25 12:20 | REP ---
Clinical: Altered mental status. Possible acute cerebral infarction. Technique: Standard noncontrast MRI brain sequencing. Comparison: 10/06/2013. Findings: Age-related, progressive atrophy and microvascular ischemic changes along with periventricular leukomalacia is again appreciated. Ventricles are symmetric. Basilar cisterns appear patent. No evidence for acute intracranial hemorrhage, mass or mass effect. No extra-axial collection. Sinuses are clear. Orbits are symmetric. Impression: Progressive atrophy and microvascular ischemic changes. No evidence for acute intracranial infarction, or mass/mass effect. Signed by Yaw Conti MD 02/25/2017 12:11 P
[2017-02-25 14:00] VITALS: BP 107/59
--- NOTE | 2017-02-25 16:27 | REP ---
Clinical: Possible petechial hemorrhage by MRI. Comparison: MRI dated 02/25/2017. CT dated 02/23/2017. Findings: Age-related atrophy, periventricular leukomalacia and microvascular ischemic changes are appreciated. The ventricles and sulci are symmetric. Swan-white differentiation is maintained. There is no evidence for acute intracranial hemorrhage, mass/mass effect, pathology or infarction. No extra-axial fluid collection. Calvarium is intact. Paranasal sinuses and mastoid air cells are clear. Suspected petechial hemorrhage in the right basal ganglia on MRI likely represented chronic changes. There is no evidence for acute intracranial hemorrhage. Impression: 1. Age related atrophy and microvascular ischemic changes. 2. No acute intracranial hemorrhage, infarction, or mass/mass effect. 3. Suspected petechial hemorrhage in the right basal ganglia by MRI likely reflected chronic change and does not correspond to acute hemorrhage. Signed by Yaw Conti MD 02/25/2017 04:17 P
[2017-02-25] MEDS: zolPIDEM TARTRATE 10MG TAB PO SCH (20:52)
[2017-02-25] MEDS: CEFTRIAXONE SOD 1 GM in APPROPRIATE DILUENT 1 EA IV SCH (20:53)
[2017-02-25 22:00] VITALS: BP 148/67
[2017-02-26] MEDS: metroNIDAZOLE (FLAGYL) 500 MG TAB PO SCH ×3 (05:44→21:03)
[2017-02-26 06:00] VITALS: BP 152/78
[2017-02-26 06:35] LABS: MEAN CORPUSCULAR HEMOGLOBIN 29.7 pg (27.0-33.0); MEAN CORPUSCULAR HGB CONC 32.7 g/dl (32.0-36.5); MEAN CORPUSCULAR VOLUME 90.9 fl (80.0-96.0); PLATELET COUNT, AUTOMATED 248 10^3/uL (150-450); RED CELL DISTRIBUTION WIDTH 14.2 % (11.5-14.5)
[2017-02-26 06:37] LABS: ADD MANUAL DIFFER YES; BLASTS POS FLAG; DIFF SLIDE NUMBER 37; POSITIVE DIFF POS FLAG; POSITIVE MORPH POS FLAG; WBC SCAT POS FLAG
[2017-02-26 06:55] LABS: ALBUMIN 2.5 GM/DL (3.2-5.2); ALBUMIN/GLOBULIN RATIO 0.89 (1.00-1.93); BILIRUBIN,TOTAL 0.3 MG/DL (0.2-1.0); CALCIUM LEVEL 8.7 MG/DL (8.8-10.2); CREATININE FOR GFR 1.02 MG/DL (0.55-1.02); GLOMERULAR FILTRATION RATE 54.4 (>32); MAGNESIUM LEVEL 1.7 MG/DL (1.8-2.4); POTASSIUM SERUM 3.8 MEQ/L (3.5-5.1); TOTAL PROTEIN 5.3 GM/DL (6.4-8.2)
[2017-02-26 07:26] LABS: BANDS 1 % (< 11); BASOPHILS 1 % (0-4); EOSINOPHILS 1 % (0-5)
[2017-02-26 07:27] LABS: SMUDGE CELLS 2+
[2017-02-26] MEDS: CLOPIDOGREL 75 MG TAB PO SCH (08:08)
[2017-02-26] MEDS: DONEPEZIL 5 MG TAB PO SCH (08:08)
[2017-02-26] MEDS: LACTOBACILLUS ACIDOPHILUS CAP (BACID) PO SCH ×2 (08:08→21:02)
[2017-02-26] MEDS: PANTOPRAZOLE 40MG TAB (PROTONIX) PO SCH (08:08)
[2017-02-26] MEDS: HumaLOG INSULIN (NovoLOG) PER UNIT SC SCH ×4 (08:08→20:45)
[2017-02-26] MEDS: ENOXAPARIN 40 MG/0.4 ML SYRINGE (J1650) SC SCH (08:09)
[2017-02-26] MEDS: NYSTATIN 100,000 UNITS/GM TOPICAL PWD 15 GM TOP SCH (08:09)
[2017-02-26] MEDS: OLOPATADINE 0.1% OPHTH SOL 5ML(PATANOL) OU SCH ×2 (08:09→16:54)
[2017-02-26] MEDS ORDERED: MAG SULF 1GM/100ML (MAG RUN) 1 GM in APPROPRIATE DILUENT 1 EA IV ONE (11:45)
--- NOTE | 2017-02-26 12:01 | IPNPDOC ---
Subjective Date Seen The patient was seen on 02/26/17. Subjective Chief Complaint/HPI The patient is a 86-year-old female admitted with a reason for visit of AMS. Events since last encounter no complaints this morning. Objective Physical Examination General Exam: Positive: Alert, Cooperative, No Acute Distress Eye Exam: Positive: PERRLA, Conjunctiva & lids normal, EOMI, Negative: Sclera icteric ENT Exam: Positive: Atraumatic, Mucous membr. moist/pink, Pharynx Normal Neck Exam: Positive: Supple, Negative: JVD, thyromegaly Chest Exam: Positive: Clear to auscultation, Normal air movement Heart Exam: Positive: Rate Normal, Regular Rhythm, Normal S1, Normal S2, Negative: Murmurs, Rubs Telemetry: Positive: No significant arrhythmia Abdomen Exam: Positive: Normal bowel sounds, Soft, Negative: Tenderness, Hepatospenomegaly Extremity Exam: Positive: Normal pulses, Negative: Clubbing, Cyanosis, Edema Assessment /Plan Problems (1) Periodontitis Status: Acute Problem Text: continue ceftriaxone and metronidazole. (2) Acute metabolic encephalopathy Status: Acute Problem Text: possible due to infection. source possibly dental rather than UTI. now resolved. has underlying probably age related and chronic microvascular disease related Dementia TSH normal , RPR normal MRi brain possible caudate nucleus petechial hemorrhageon the right however CT head same time did not show any hemorrhage was read as chronic change. CT brain with age related atrophy. (3) UTI (urinary tract infection) Status: Acute Problem Text: unlikely UTI as no symptoms and only 9 wbc in urine , no fever. but will continue with ceftriaxone urine cultures are positive for 2 organisms both greater than 103403 cfu . so will continue with ceftriaxone. (4) CLL (chronic lymphocytic leukemia) Onset Date: 10/17/2013 Status: Chronic (5) ALLYN on CPAP Status: Chronic (6) CAD (coronary artery disease) Status: Chronic Problem Text: status post CABg and stenting in the past no issues at present (7) Polymyalgia rheumatica Status: Chronic (8) Diabetes Status: Chronic (9) Hypertension Status: Chronic (10) Hyperlipidemia Status: Chronic (11) Gout Status: Chronic (12) Diastolic CHF Status: Chronic (13) GERD (gastroesophageal reflux disease) Status: Chronic (14) Fibromyalgia Status: Chronic (15) Dementia Status: Chronic Problem Text: continue donepezil Plan/VTE VTE Prophylaxis Ordered?: Yes VS[facility]O Vital Signs Date Time Temp Pulse Resp B/P (MAP) Pulse Ox O2 Delivery O2 Flow Rate FiO2 02/26/17 10:00 Room Air 02/26/17 06:00 98.2 77 19 152/78 (102) 94 Laboratory Data 24H LABS Laboratory Tests 2 02/25/17 12:19: Bedside Glucose (Misc Panel) 131H 02/25/17 20:36: Bedside Glucose (Misc Panel) 101 02/26/17 06:10: White Blood Count 14.0H, Red Blood Count 3.97L, Hemoglobin 11.8L, Hematocrit 36.1, Mean Corpuscular Volume 90.9, Mean Corpuscular Hemoglobin 29.7, Mean Corpuscular Hemoglobin Concent 32.7, Red Cell Distribution Width 14.2, Platelet Count 248, Lymphocytes # (Auto) , Nucleated Red Blood Cells % (auto) 0.1H, Neutrophils 15L, Band Neutrophils 1, Lymphocytes (Manual) 74H, Monocytes (Manual ) 3, Eosinophils (Manual) 1, Basophils (Manual) 1, Atypical Lymphocytes 5, Smudge Cells 2+, Platelet Estimate NORMAL, Anion Gap 7L, Glomerular Filtration Rate 54.4, Blood Urea Nitrogen 6L, Creatinine 1.02, Sodium Level 141, Potassium Level 3.8, Chloride Level 109H, Carbon Dioxide Level 25, Calcium Level 8.7L, Aspartate Amino Transf (AST/SGOT) 12, Alanine Aminotransferase (ALT/SGPT) 8L, Alkaline Phosphatase 41L, Total Bilirubin 0.3, Total Protein 5.3L, Albumin 2.5L , Magnesium Level 1.7L, Albumin/Globulin Ratio 0.89L CBC/BMP Laboratory Tests 02/26/17 06:10 Red Blood Count 3.97 L, Mean Corpuscular Volume 90.9, Mean Corpuscular Hemoglobin 29.7, Mean Corpuscular Hemoglobin Concent 32.7, Red Cell Distribution Width 14.2, Lymphocytes # (Auto) , Calcium Level 8.7 L, Aspartate Amino Transf (AST/SGOT) 12, Alanine Aminotransferase (ALT/SGPT) 8 L, Alkaline Phosphatase 41 L, Total Bilirubin 0.3, Total Protein 5.3 L, Albumin 2.5 L Microbiology Microbiology 02/23/17 Blood Culture - Preliminary, Resulted No Growth after 48 hours. All Specime... 02/23/17 Blood Culture - Preliminary, Resulted No Growth after 48 hours. All Specime... 02/23/17 Urine Culture - Final, Complete Streptococcus Anginosus Grp Aerococcus Viridans ANDREWS GARCIA MD Feb 26, 2017 12:01
[2017-02-26 14:00] VITALS: BP 151/77
[2017-02-26] MEDS: zolPIDEM TARTRATE 10MG TAB PO SCH (21:02)
[2017-02-26] MEDS: CEFTRIAXONE SOD 1 GM in APPROPRIATE DILUENT 1 EA IV SCH (21:03)
[2017-02-27] MEDS: metroNIDAZOLE (FLAGYL) 500 MG TAB PO SCH ×3 (05:49→21:11)
[2017-02-27 06:00] VITALS: BP 131/66
[2017-02-27 06:42] LABS: MEAN CORPUSCULAR HEMOGLOBIN 29.5 pg (27.0-33.0); MEAN CORPUSCULAR HGB CONC 32.1 g/dl (32.0-36.5); MEAN CORPUSCULAR VOLUME 92.1 fl (80.0-96.0); PLATELET COUNT, AUTOMATED 293 10^3/uL (150-450); RED CELL DISTRIBUTION WIDTH 14.4 % (11.5-14.5)
[2017-02-27 06:45] LABS: POSITIVE DIFF POS FLAG; POSITIVE MORPH POS FLAG; WBC SCAT POS FLAG; WHITE BLOOD COUNT 15.2 10^3/uL (4.0-10.0)
[2017-02-27 06:46] LABS: ADD MANUAL DIFFER YES; BLASTS POS FLAG; DIFF SLIDE NUMBER 40
[2017-02-27 07:01] LABS: ALBUMIN 2.8 GM/DL (3.2-5.2); ALBUMIN/GLOBULIN RATIO 0.9 (1.00-1.93); BILIRUBIN,TOTAL 0.3 MG/DL (0.2-1.0); CALCIUM LEVEL 8.8 MG/DL (8.8-10.2); CREATININE FOR GFR 1.04 MG/DL (0.55-1.02); GLOMERULAR FILTRATION RATE 53.2 (>32); MAGNESIUM LEVEL 1.9 MG/DL (1.8-2.4); POTASSIUM SERUM 3.4 MEQ/L (3.5-5.1); TOTAL PROTEIN 5.9 GM/DL (6.4-8.2)
[2017-02-27 07:07] LABS: BASOPHILS 1 % (0-4)
[2017-02-27 07:08] LABS: SMUDGE CELLS 1+
[2017-02-27] MEDS: LACTOBACILLUS ACIDOPHILUS CAP (BACID) PO SCH ×2 (08:25→21:12)
[2017-02-27] MEDS: ENOXAPARIN 40 MG/0.4 ML SYRINGE (J1650) SC SCH (08:26)
[2017-02-27] MEDS: CLOPIDOGREL 75 MG TAB PO SCH (08:26)
[2017-02-27] MEDS: NYSTATIN 100,000 UNITS/GM TOPICAL PWD 15 GM TOP SCH (08:26)
[2017-02-27] MEDS: HumaLOG INSULIN (NovoLOG) PER UNIT SC SCH ×4 (08:26→21:00)
[2017-02-27] MEDS: DONEPEZIL 5 MG TAB PO SCH (08:26)
[2017-02-27] MEDS: PANTOPRAZOLE 40MG TAB (PROTONIX) PO SCH (08:26)
[2017-02-27] MEDS: OLOPATADINE 0.1% OPHTH SOL 5ML(PATANOL) OU SCH ×2 (08:26→17:55)
--- NOTE | 2017-02-27 11:00 | IPNPDOC ---
Subjective Date Seen The patient was seen on 02/27/17. Subjective Chief Complaint/HPI The patient is a 86-year-old female admitted with a reason for visit of AMS. Events since last encounter No complaints this morning, no fever or chills, no chest pain , no abdominal pain , no nausea or vomiting , no diarrhea. no cough or phlegm. Objective Physical Examination General Exam: Positive: Alert, Cooperative, No Acute Distress Eye Exam: Positive: PERRLA, Conjunctiva & lids normal, EOMI, Negative: Sclera icteric ENT Exam: Positive: Atraumatic, Mucous membr. moist/pink, Pharynx Normal Neck Exam: Positive: Supple, Negative: JVD, thyromegaly Chest Exam: Positive: Clear to auscultation, Normal air movement Heart Exam: Positive: Rate Normal, Regular Rhythm, Normal S1, Normal S2, Negative: Murmurs, Rubs Telemetry: Positive: No significant arrhythmia Abdomen Exam: Positive: Normal bowel sounds, Soft, Negative: Tenderness, Hepatospenomegaly Extremity Exam: Positive: Normal pulses, Negative: Clubbing, Cyanosis, Edema Assessment /Plan Problems (1) Periodontitis Status: Acute Problem Text: continue ceftriaxone and metronidazole. dc after 5 days treatment. (2) Acute metabolic encephalopathy Status: Resolved Problem Text: possible due to infection. source possibly dental or UTI. now resolved. has underlying probably age related and chronic microvascular disease related Dementia TSH normal , RPR normal MRi brain possible caudate nucleus petechial hemorrhageon the right however CT head same time did not show any hemorrhage was read as chronic change. CT brain with age related atrophy. (3) UTI (urinary tract infection) Status: Acute Problem Text: unlikely UTI as no symptoms and only 9 wbc in urine , no fever. but will continue with ceftriaxone urine cultures are positive for 2 organisms both greater than 124315 cfu . so will continue with ceftriaxone. (4) CLL (chronic lymphocytic leukemia) Onset Date: 10/17/2013 Status: Chronic (5) ALLYN on CPAP Status: Chronic (6) CAD (coronary artery disease) Status: Chronic Problem Text: status post CABg and stenting in the past no issues at present (7) Polymyalgia rheumatica Status: Chronic (8) Diabetes Status: Chronic (9) Hypertension Status: Chronic (10) Hyperlipidemia Status: Chronic (11) Gout Status: Chronic (12) Diastolic CHF Status: Chronic (13) GERD (gastroesophageal reflux disease) Status: Chronic (14) Fibromyalgia Status: Chronic (15) Dementia Status: Chronic Problem Text: continue donepezil Plan/VTE VTE Prophylaxis Ordered?: Yes VS, I&O, 24H, Fishbone Vital Signs/I&O Vital Signs Date Time Temp Pulse Resp B/P (MAP) Pulse Ox O2 Delivery O2 Flow Rate FiO2 02/27/17 06:00 97.4 64 17 131/66 (87) 95 Room Air Laboratory Data 24H LABS Laboratory Tests 2 02/26/17 12:06: Bedside Glucose (Misc Panel) 127H 02/26/17 16:29: Bedside Glucose (Misc Panel) 105 02/26/17 19:52: Bedside Glucose (Misc Panel) 117H 02/27/17 05:27: White Blood Count 15.2H, Red Blood Count 4.30, Hemoglobin 12.7, Hematocrit 39.6 , Mean Corpuscular Volume 92.1, Mean Corpuscular Hemoglobin 29.5, Mean Corpuscular Hemoglobin Concent 32.1, Red Cell Distribution Width 14.4, Platelet Count 293, Lymphocytes # (Auto) , Nucleated Red Blood Cells % (auto) 0.0, Neutrophils 19L, Lymphocytes (Manual) 73H, Monocytes (Manual) 3, Basophils ( Manual) 1, Atypical Lymphocytes 4, Smudge Cells 1+, Platelet Estimate NORMAL, Red Blood Cell Morphology NORMAL, Anion Gap 9, Glomerular Filtration Rate 53.2, Blood Urea Nitrogen 5L, Creatinine 1.04H, Sodium Level 142, Potassium Level 3.4L , Chloride Level 108H, Carbon Dioxide Level 25, Calcium Level 8.8, Aspartate Amino Transf (AST/SGOT) 17, Alanine Aminotransferase (ALT/SGPT) 9L, Alkaline Phosphatase 49, Total Bilirubin 0.3, Total Protein 5.9L, Albumin 2.8L, Magnesium Level 1.9, Albumin/Globulin Ratio 0.90L CBC/BMP Laboratory Tests 02/27/17 05:27 Red Blood Count 4.30, Mean Corpuscular Volume 92.1, Mean Corpuscular Hemoglobin 29.5, Mean Corpuscular Hemoglobin Concent 32.1, Red Cell Distribution Width 14.4 , Lymphocytes # (Auto) , Calcium Level 8.8, Aspartate Amino Transf (AST/SGOT) 17 , Alanine Aminotransferase (ALT/SGPT) 9 L, Alkaline Phosphatase 49, Total Bilirubin 0.3, Total Protein 5.9 L, Albumin 2.8 L Microbiology Microbiology 02/23/17 Blood Culture - Preliminary, Resulted No Growth after 72 hours. All specime... 02/23/17 Blood Culture - Preliminary, Resulted No Growth after 72 hours. All specime... 02/23/17 Urine Culture - Final, Complete Streptococcus Anginosus Grp Aerococcus Viridans ANDREWS GARCIA MD Feb 27, 2017 11:00
[2017-02-27 14:00] VITALS: BP 149/68
[2017-02-27] MEDS: zolPIDEM TARTRATE 10MG TAB PO SCH (21:11)
[2017-02-27] MEDS: CEFTRIAXONE SOD 1 GM in APPROPRIATE DILUENT 1 EA IV SCH (21:12)
[2017-02-27 22:00] VITALS: BP 162/72
[2017-02-28] MEDS: metroNIDAZOLE (FLAGYL) 500 MG TAB PO SCH ×3 (05:40→21:09)
[2017-02-28 06:00] VITALS: BP 143/66
[2017-02-28 06:46] LABS: MEAN CORPUSCULAR HEMOGLOBIN 29.5 pg (27.0-33.0); MEAN CORPUSCULAR HGB CONC 32.3 g/dl (32.0-36.5); MEAN CORPUSCULAR VOLUME 91.4 fl (80.0-96.0); PLATELET COUNT, AUTOMATED 253 10^3/uL (150-450); RED CELL DISTRIBUTION WIDTH 14.3 % (11.5-14.5)
[2017-02-28 06:50] LABS: ADD MANUAL DIFFER YES; BLASTS POS FLAG; DIFF SLIDE NUMBER 32; POSITIVE DIFF POS FLAG; POSITIVE MORPH POS FLAG; WBC SCAT POS FLAG; WHITE BLOOD COUNT 12.3 10^3/uL (4.0-10.0)
[2017-02-28 07:03] LABS: ALBUMIN 2.6 GM/DL (3.2-5.2); ALBUMIN/GLOBULIN RATIO 0.9 (1.00-1.93); BILIRUBIN,TOTAL 0.3 MG/DL (0.2-1.0); CALCIUM LEVEL 8.7 MG/DL (8.8-10.2); GLOMERULAR FILTRATION RATE 55.7 (>32); MAGNESIUM LEVEL 1.9 MG/DL (1.8-2.4); POTASSIUM SERUM 3.7 MEQ/L (3.5-5.1); TOTAL PROTEIN 5.5 GM/DL (6.4-8.2)
[2017-02-28 07:39] LABS: EOSINOPHILS 4 % (0-5)
[2017-02-28 07:40] LABS: SMUDGE CELLS 1+
[2017-02-28] MEDS: HumaLOG INSULIN (NovoLOG) PER UNIT SC SCH ×4 (07:53→21:00)
[2017-02-28 09:30] VITALS: BP 132/78
[2017-02-28] MEDS: CLOPIDOGREL 75 MG TAB PO SCH (09:31)
[2017-02-28] MEDS: LACTOBACILLUS ACIDOPHILUS CAP (BACID) PO SCH ×2 (09:31→21:09)
[2017-02-28] MEDS: DONEPEZIL 5 MG TAB PO SCH (09:31)
[2017-02-28] MEDS: PANTOPRAZOLE 40MG TAB (PROTONIX) PO SCH (09:31)
[2017-02-28] MEDS: ENOXAPARIN 40 MG/0.4 ML SYRINGE (J1650) SC SCH (09:33)
[2017-02-28] MEDS: OLOPATADINE 0.1% OPHTH SOL 5ML(PATANOL) OU SCH ×2 (09:33→17:43)
[2017-02-28] MEDS: NYSTATIN 100,000 UNITS/GM TOPICAL PWD 15 GM TOP SCH (09:34)
[2017-02-28] MEDS ORDERED: BACITAB PO (10:51)
[2017-02-28] MEDS ORDERED: AUGM875T28 PO (10:51)
--- NOTE | 2017-02-28 13:24 | IPN ---
DATE: 02/28/2017 The patient is seen and examined at the bedside. Chart has been reviewed. The patient has no complaints this morning. No generalized weakness. No dental pain. No dysuria, urgency, frequency, fever, chills. Temperature 98.2, pulse 68, respiratory rate 22, blood pressure 132/78, 96% on room air. GENERAL: Awake, alert and oriented times three. Answering questions appropriately. LUNGS: Clear to auscultation. No wheezes, rales, or rhonchi. HEART: S1, S2. Sinus rhythm. ABDOMEN: Soft, nontender, nondistended. Positive bowel sounds. EXTREMITIES: No cyanosis, clubbing or pitting edema. CBC and metabolic panel have been reviewed. Microbiology: Urine culture with Streptococcus anginosus, Enterococcus viridans. ASSESSMENT AND PLAN: This is an 86-year-old female with a past medical history significant for chronic lymphocytic leukemia, coronary artery disease, polymyalgia rheumatica, diabetes, hypertension, hyperlipidemia, diastolic heart failure, reflux, fibromyalgia, and chronic dementia, currently with the following issues: 1. Periodontitis. On ceftriaxone and Flagyl. Complete a 5 day course. Change to Augmentin. 2. Acute metabolic encephalopathy secondary to periodontitis and urinary tract infection (UTI). The patient has age related atrophy on MRI of the brain with a caudate nucleus petechial hemorrhage on the right. CT showed no hemorrhage. CT of the brain with age-related atrophy. 3. UTI. Ceftriaxone. Urine culture is positive for two organisms, greater than 100,000 cfu's. We will continue with ceftriaxone. 4. CLL. Chronic. 5. Obstructive sleep apnea. On continuous positive airway pressure (CPAP). 6. Chronic coronary artery disease. Status post coronary artery bypass graft (CABG) and stenting in the past. No issues currently. 7. Polymyalgia rheumatica. Chronic. 8. Diabetes. Chronic. 9. Hypertension. Chronic. 10. Hyperlipidemia. Chronic. 11. Diastolic heart failure, compensated. 12. Reflux. Chronic. 13. Fibromyalgia. Chronic. 14. Dementia. Chronic. Continue donepezil. DISPOSITION: Await physical therapy (PT) clearance prior to discharge home. The patient is currently not safe for discharge at this time.
[2017-02-28 14:00] VITALS: BP 109/58
[2017-02-28 20:48] VITALS: BP 136/72
[2017-02-28] MEDS: zolPIDEM TARTRATE 10MG TAB PO SCH (21:10)
[2017-02-28 22:00] VITALS: BP 131/70
[2017-02-28] MEDS: CEFTRIAXONE SOD 1 GM in APPROPRIATE DILUENT 1 EA IV SCH (22:34)
[2017-03-01 06:00] VITALS: BP 135/83
[2017-03-01 06:22] LABS: MEAN CORPUSCULAR HEMOGLOBIN 29.1 pg (27.0-33.0); MEAN CORPUSCULAR HGB CONC 32.1 g/dl (32.0-36.5); MEAN CORPUSCULAR VOLUME 90.9 fl (80.0-96.0); PLATELET COUNT, AUTOMATED 253 10^3/uL (150-450); RED CELL DISTRIBUTION WIDTH 14.3 % (11.5-14.5)
[2017-03-01 06:23] LABS: ADD MANUAL DIFFER YES; BLASTS POS FLAG; DIFF SLIDE NUMBER 14; POSITIVE DIFF POS FLAG; POSITIVE MORPH POS FLAG; WBC SCAT POS FLAG; WHITE BLOOD COUNT 11.9 10^3/uL (4.0-10.0)
[2017-03-01] MEDS: metroNIDAZOLE (FLAGYL) 500 MG TAB PO SCH ×2 (06:35→14:17)
[2017-03-01 06:50] LABS: ALBUMIN 2.7 GM/DL (3.2-5.2); ALBUMIN/GLOBULIN RATIO 0.9 (1.00-1.93); BILIRUBIN,TOTAL 0.3 MG/DL (0.2-1.0); CALCIUM LEVEL 8.7 MG/DL (8.8-10.2); CREATININE FOR GFR 0.97 MG/DL (0.55-1.02); GLOMERULAR FILTRATION RATE 57.7 (>32); MAGNESIUM LEVEL 1.8 MG/DL (1.8-2.4); POTASSIUM SERUM 3.7 MEQ/L (3.5-5.1); TOTAL PROTEIN 5.7 GM/DL (6.4-8.2)
[2017-03-01 07:41] LABS: EOSINOPHILS 3 % (0-5)
[2017-03-01 07:48] LABS: SMUDGE CELLS 1+
[2017-03-01] MEDS: HumaLOG INSULIN (NovoLOG) PER UNIT SC SCH ×2 (08:04→13:48)
[2017-03-01] MEDS: NYSTATIN 100,000 UNITS/GM TOPICAL PWD 15 GM TOP SCH (09:00)
[2017-03-01 10:16] VITALS: BP 100/58
--- NOTE | 2017-03-01 10:27 | IPN ---
DATE: 03/01/2017 Patient is seen and examined at the bedside. Chart has been reviewed. This morning, the patient has no new complaints. She has no dysuria, urgency, frequency, fever, chills or flank pain. Tolerating her food without difficulty. Afebrile. Temperature 98, pulse 69, respiratory rate 20, blood pressure 135/83, 94% on room air. Generally, patient is answering questions appropriately. Awake, alert and oriented to person, place and time. No use of respiratory accessory muscles. No cyanosis. No cervical lymphadenopathy or thyromegaly. Lungs: Clear to auscultation. No wheezing, rales, or rhonchi. Heart: S1, S2. Sinus rhythm. Abdomen: Soft, nontender, nondistended. Positive bowel sounds. No hepatosplenomegaly. No rebound or guarding. No CVA tenderness. Extremities: No cyanosis, clubbing or pitting edema. LABORATORY DATA: White count 11.9, hemoglobin 11, hematocrit 36, platelet count 253, sodium 141, potassium 3.7, chloride 108, bicarb 25, BUN 5, creatinine 0.97, glucose of 113, calcium of 8.7, magnesium 1.8, total bilirubin 0.3, AST 43, ALT 14 . Urine culture streptococcus vaginosis, Enterococcus viridans. ASSESSMENT AND PLAN: This is an 86-year-old female with a history significant for chronic lymphocytic leukemia, coronary artery disease, polymyalgia rheumatica, diabetes, hypertension, hyperlipidemia, diastolic heart failure, reflux, fibromyalgia, and chronic dementia, currently with the following issues: 1. Periodontitis. On ceftriaxone and Flagyl. Complete a 5 day course. Change to Augmentin as an outpatient. 2. Acute metabolic encephalopathy secondary to periodontitis and urinary tract infection (UTI). MRI of the brain shows age related atrophy with caudate nucleus petechial hemorrhage on the right. CT showed no hemorrhage. CT of the brain with age-related atrophy. 3. UTI. Ceftriaxone. Positive for two organisms, greater than 100,000 cfu's. We will continue to complete a full course. 4. CLL. Chronic. 5. Obstructive sleep apnea. On continuous positive airway pressure (CPAP). 6. Chronic CAD CABG with stenting in the past. No ischemic issues currently. 7. Polymyalgia rheumatica. Chronic. 8. Diabetes. Chronic. 9. Hypertension. Stable. 10. Hyperlipidemia. Chronic. 11. Diastolic heart failure, compensated. 12. Reflux. Chronic. 13. Fibromyalgia. Chronic. 14. Dementia. Chronic, on donepezil. DISPOSITION: Awaiting physical therapy (PT) clearance prior to discharge home. Change to oral antibiotics once ready for discharge. May be discharged home today if cleared by physical therapy.
[2017-03-01] MEDS: LACTOBACILLUS ACIDOPHILUS CAP (BACID) PO SCH (10:50)
[2017-03-01] MEDS: OLOPATADINE 0.1% OPHTH SOL 5ML(PATANOL) OU SCH (10:50)
[2017-03-01] MEDS: CLOPIDOGREL 75 MG TAB PO SCH (10:51)
[2017-03-01] MEDS: PANTOPRAZOLE 40MG TAB (PROTONIX) PO SCH (10:51)
[2017-03-01] MEDS: DONEPEZIL 5 MG TAB PO SCH (10:51)
[2017-03-01] MEDS: ENOXAPARIN 40 MG/0.4 ML SYRINGE (J1650) SC SCH (10:53)
[2017-03-01 14:00] VITALS: BP 177/79
--- NOTE | 2017-03-01 15:08 | DSES ---
DATE OF ADMISSION: 02/23/2017 DATE OF DISCHARGE: 03/01/2017 PRIMARY CARE PHYSICIAN: Dr. Cesar Carter. MECHANICAL EXPERT: Dr. Mcdowell. WEB PRESSMAN: Dr. Delvalle and Dr. Tovar at [facility]. PRIMARY DISCHARGE DIAGNOSES: 1. Acute metabolic encephalopathy secondary to urinary tract infection (UTI). 2. Peridentitis. 3. History of chronic lymphocytic leukemia. 4. Type 2 diabetes. 5. Obstructive sleep apnea on continuous positive airway pressure (CPAP). 6. Coronary artery disease (CAD) with history of coronary artery bypass graft (CABG) and stents. 7. History of polymyalgia rheumatica (PMR) and fibromyalgia. 8. Diastolic heart failure, compensated. DISCHARGE MEDICATIONS: - Augmentin 875 mg by mouth twice a day - lactobacillus one tablet by mouth twice a day - Plavix 75 mg daily - donepezil 5 mg daily - Lasix 40 mg daily - lorazepam 1 mg as needed before any procedure - metformin 500 mg twice a day - Protonix 40 mg daily - zolpidem 10 mg at bedtime HOSPITAL COURSE: This is an 86-year-old female who presented to the emergency room with complaints of confusion. Patient had been progressively weak for the past three weeks, eating less and less, has been talking more about her who . She was found down on the floor about 10 a.m., felt very tired and had been reporting some right groin pain. Patient was found to have foul-smelling urine in the emergency room. Urinalysis (UA) was positive for infection and was admitted for urinary tract infection. She also complained of dental issues and was treated for peridentitis with ceftriaxone and Flagyl. Patient was afebrile. White count improved from admission of 20,000 to discharge of 11,000. She had 100.7 temperature on 02/23/2017 and remained afebrile until the day of discharge. Microbiology grew Streptococcus and Aerococcus on 02/23/2017. Blood cultures were negative. Imaging studies to evaluate an effusion included MRI, which showed no evidence of acute intracranial infarction, mass or mass effect, chronic microvascular ischemic changes and progressive atrophy, which are age-related. Due to complaints of groin pain, CT abdomen and pelvis performed showed mild right basilar atelectasis, cholelithiasis, 2.5 cm hepatic hemangioma, with no acute or abdominopelvic pathology appreciated. Hip and pelvis x-ray showed no acute fracture or dislocation and chest x-ray showed no acute cardiopulmonary process. Patient was stabilized with intravenous (IV) antibiotics. Improved mental state was noted. Patient, however, was not safe for hospital discharge and required physical therapy and occupational therapy. She passed on 03/01/2017 and was cleared for discharged home. LABORATORIES ON DISCHARGE: White count 11.9, hemoglobin 11, hematocrit 36, platelet count 253. Sodium 141, potassium 2.7, chloride 108, bicarbonate 25, BUN 5, creatinine 0.97. Microbiology: Urine culture 10/23/2016: Streptococcus Aerococcus. Two sets of blood cultures 02/23/2017: No growth. Imaging studies: CT abdomen and pelvis: Cholelithiasis, right basilar atelectasis, 2.5 cm hemangioma. No acute changes. No acute abdominal or pelvic pathology. Hip and pelvic x-ray 02/23/2017: No acute fracture or dislocation. Chest x-ray 02/23/2017: No acute cardiopulmonary process. MRI of the brain 02/25/2017: Progressive atrophy, microvascular ischemic changes noted. No evidence of acute infarction, mass or mass effect. TIME SPENT ON DISCHARGE: 30 minutes.
== END 2017-03-01 15:46 | disposition home health service (06) | DRG 689 ==
LOC: M ED 12:06 → EDBD 12:06 → M ED INP 18:03 → M PCU 21:40 → M MSPAV 02-24 14:32
PROVIDERS: ADMIT Hospitalist; ATTEND General Practice
DX: N39.0 Urinary tract infection, site not specified (principal); G93.40 Encephalopathy, unspecified; I50.32 Chronic diastolic (congestive) heart failure; K05.30 Chronic periodontitis, unspecified; E11.9 Type 2 diabetes mellitus without complications; F03.90 Unspecified dementia, unspecified severity, without behavioral disturbance, psychotic disturbance, mood disturbance, and anxiety; I25.10 Atherosclerotic heart disease of native coronary artery without angina pectoris; K21.9 Gastro-esophageal reflux disease without esophagitis; I11.0 Hypertensive heart disease with heart failure; E78.5 Hyperlipidemia, unspecified; G47.33 Obstructive sleep apnea (adult) (pediatric); Z99.89 Dependence on other enabling machines and devices; Z90.710 Acquired absence of both cervix and uterus; Z87.891 Personal history of nicotine dependence; Z88.8 Allergy status to other drugs, medicaments and biological substances; Z79.84 Long term (current) use of oral hypoglycemic drugs; Z79.02 Long term (current) use of antithrombotics/antiplatelets; Z79.899 Other long term (current) drug therapy; Z95.5 Presence of coronary angioplasty implant and graft; Z86.73 Personal history of transient ischemic attack (TIA), and cerebral infarction without residual deficits

== ENCOUNTER → 2017-06-20 | Outpatient (CLI) | payer MEDICARE | LOC: M RAD 12:28 | DX: R91.8 Other nonspecific abnormal finding of lung field (principal) | CPT/HCPCS: 71250 ==

== ENCOUNTER 2018-03-13 19:03 | Inpatient (IN) | payer MEDICARE ==
[2018-03-13 18:57] LABS: KETONE, URINE AUTO RFX TRACE mg/dL (NEGATIVE); MUCUS, URINE RFX SMALL (NEGATIVE); NITRITE, URINE AUTO RFX NEGATIVE (NEGATIVE); RBC, URINE AUTO RFX 4 /HPF (0-3); SPECIFIC GRAVITY UR AUTO RFX 1.016 (1.002-1.035); SQUAM EPITHELIAL CELL UR AURFX 2 /HPF (0-6)
[2018-03-13 18:59] LABS: LEUKOCYTE ESTERASE UR AUTO RFX 2+ (NEGATIVE); WBC, URINE AUTO RFX 22 /HPF (0-3)
[2018-03-13] MEDS: NS 500 ML IV ×2 (19:23→21:00)
[2018-03-13 19:38] LABS: HEMATOCRIT 41.1 % (36.0-47.0); MEAN CORPUSCULAR HEMOGLOBIN 29.1 pg (27.0-33.0); MEAN CORPUSCULAR HGB CONC 31.6 g/dl (32.0-36.5); MEAN CORPUSCULAR VOLUME 92.2 fl (80.0-96.0); PLATELET COUNT, AUTOMATED 257 10^3/uL (150-450); RED BLOOD COUNT 4.46 10^6/uL (4.00-5.40); RED CELL DISTRIBUTION WIDTH 14.3 % (11.5-14.5)
[2018-03-13 19:39] LABS: ADD MANUAL DIFFER YES; DIFF SLIDE NUMBER 368; POSITIVE DIFF POS FLAG; POSITIVE MORPH POS FLAG; WHITE BLOOD COUNT 20.6 10^3/uL (4.0-10.0)
[2018-03-13 19:50] LABS: AMMONIA < 10 uMOL/L (<32)
[2018-03-13 19:51] LABS: LACTIC ACID SEPSIS PROTOCOL 1.7 MMOL/L (0.4-2.0)
[2018-03-13 20:00] LABS: ALBUMIN/GLOBULIN RATIO 1.15 (1.00-1.93); ALKALINE PHOSPHATASE 51 U/L (45-117); ALT/SGPT 16 U/L (12-78); ANION GAP 8 MEQ/L (8-16); AST/SGOT 23 U/L (7-37); BILIRUBIN,DIRECT 0.2 MG/DL (0.0-0.2); BLOOD UREA NITROGEN 21 MG/DL (7-18); CALCIUM LEVEL 8.4 MG/DL (8.8-10.2); CARBON DIOXIDE LEVEL 26 MEQ/L (21-32); CHLORIDE LEVEL 106 MEQ/L (98-107); CPK CREATINE PHOSPHOKINASE 98 U/L (26-192); CREATININE FOR GFR 0.86 MG/DL (0.55-1.30); GLOMERULAR FILTRATION RATE > 60.0 (>32); GLUCOSE, FASTING 136 MG/DL (70-100); MB/CK RELATIVE INDEX 1.63 (< OR =4); POTASSIUM SERUM 4.7 MEQ/L (3.5-5.1); SODIUM LEVEL 140 MEQ/L (136-145); TOTAL PROTEIN 5.6 GM/DL (6.4-8.2); TROPONIN I < 0.02 NG/ML (< 0.10)
[2018-03-13 20:07] LABS: ATYPICAL LYMPH 29 % (0-5); EOSINOPHILS 3 % (0-5); LYMPHOCYTES 42 % (16-52); MONOCYTES 1 % (0-8); NEUTROPHILS 25 % (35-75); PLATELET ESTIMATE NORMAL (NORMAL); SMUDGE CELLS 2+
[2018-03-13] MEDS: CIPROFLOXACIN 400 MG in APPROPRIATE DILUENT 1 EA IV (21:03)
[2018-03-13] MEDS: NS 1,000 ML IV (22:29)
[2018-03-13] MEDS ORDERED: ACETAMINOPHEN TAB 650MG DOSE (2X325MG) PO (22:30)
[2018-03-13] MEDS ORDERED: DEXTROSE 50% 50 ML SYRINGE IV (23:00)
[2018-03-13] MEDS ORDERED: GLUCOSE 4 GM CHEW TABLET PO (23:00)
[2018-03-13] MEDS ORDERED: GLUCAGON FOR INJ 1 MG VIAL (J1610) SC (23:00)
[2018-03-14] MEDS: NS 1,000 ML IV ×2 (00:29→20:46)
[2018-03-14] MEDS: HEPARIN SOD (PORCINE) 5000 UNITS/ML VIAL SC ×3 (05:30→20:44)
[2018-03-14 06:55] LABS: HEMATOCRIT 36.1 % (36.0-47.0); HEMOGLOBIN 11.5 g/dl (12.0-15.5); MEAN CORPUSCULAR HEMOGLOBIN 29.4 pg (27.0-33.0); MEAN CORPUSCULAR HGB CONC 31.9 g/dl (32.0-36.5); MEAN CORPUSCULAR VOLUME 92.3 fl (80.0-96.0); PLATELET COUNT, AUTOMATED 210 10^3/uL (150-450); RED BLOOD COUNT 3.91 10^6/uL (4.00-5.40); RED CELL DISTRIBUTION WIDTH 14.6 % (11.5-14.5)
[2018-03-14 07:02] LABS: ADD MANUAL DIFFER YES; POSITIVE DIFF POS FLAG; POSITIVE MORPH POS FLAG; WHITE BLOOD COUNT 15.1 10^3/uL (4.0-10.0)
[2018-03-14 07:03] LABS: DIFF SLIDE NUMBER 75
[2018-03-14] MEDS: HumaLOG INSULIN (NovoLOG) PER UNIT SC ×3 (07:30→17:21)
[2018-03-14 07:43] LABS: ATYPICAL LYMPH 12 % (0-5); EOSINOPHILS 1 % (0-5); LYMPHOCYTES 58 % (16-52); MONOCYTES 3 % (0-8); NEUTROPHILS 26 % (35-75); PLATELET ESTIMATE NORMAL (NORMAL); SMUDGE CELLS 2+
[2018-03-14 07:45] LABS: OVALOCYTES 1+
[2018-03-14 08:21] LABS: BEDSIDE GLUCOSE 102 MG/DL (83-110)
[2018-03-14] MEDS: predniSONE 5 MG TAB PO (09:40)
[2018-03-14] MEDS: metFORMIN (GLUCOPHAGE) 500 MG TAB PO ×2 (09:40→17:33)
[2018-03-14] MEDS: DONEPEZIL 5 MG TAB PO (09:40)
[2018-03-14] MEDS: PANTOPRAZOLE 40MG TAB (PROTONIX) PO (09:40)
[2018-03-14] MEDS: FLUBLOK(EGG FREE)(QUAD)INFLUENZA VACC 0.5ML SYRINGE (90682)18YRS&OLDER IM (09:42)
[2018-03-14] MEDS: PREVNAR 13 VACCINE SYRINGE (CPT CODE:90670) IM (09:44)
[2018-03-14] MEDS: cefTRIAXone SOD 1 GM in D5W MINI-BAG PLUS 50 ML IV (09:44)
[2018-03-14] MEDS: ANALGESIC BALM CRM 120 GM TOP ×4 (11:39→20:44)
[2018-03-14] MEDS: TRIAMCINOLONE ACET 0.1% OINTMENT 15 GM TOP ×2 (11:39→20:43)
[2018-03-14] MEDS: IBUPROFEN 200 MG TAB PO (11:43)
[2018-03-14 12:16] LABS: BEDSIDE GLUCOSE 91 MG/DL (83-110)
[2018-03-14 16:46] LABS: BEDSIDE GLUCOSE 124 MG/DL (83-110)
[2018-03-14 19:58] LABS: BEDSIDE GLUCOSE 113 MG/DL (83-110)
[2018-03-15] MEDS: HEPARIN SOD (PORCINE) 5000 UNITS/ML VIAL SC ×3 (06:00→21:43)
[2018-03-15 06:17] LABS: BEDSIDE GLUCOSE 67 MG/DL (83-110)
[2018-03-15 06:50] LABS: BEDSIDE GLUCOSE 99 MG/DL (83-110)
[2018-03-15] MEDS: HumaLOG INSULIN (NovoLOG) PER UNIT SC ×3 (07:30→17:23)
[2018-03-15] MEDS: DONEPEZIL 5 MG TAB PO (08:35)
[2018-03-15] MEDS: PANTOPRAZOLE 40MG TAB (PROTONIX) PO (08:35)
[2018-03-15] MEDS: predniSONE 5 MG TAB PO (08:35)
[2018-03-15] MEDS: metFORMIN (GLUCOPHAGE) 500 MG TAB PO ×2 (08:35→17:28)
[2018-03-15] MEDS: cefTRIAXone SOD 1 GM in D5W MINI-BAG PLUS 50 ML IV (08:36)
[2018-03-15] MEDS: TRIAMCINOLONE ACET 0.1% OINTMENT 15 GM TOP ×2 (08:37→20:18)
[2018-03-15] MEDS: ANALGESIC BALM CRM 120 GM TOP ×4 (08:37→20:18)
[2018-03-15 09:15] LABS: HEMATOCRIT 35.8 % (36.0-47.0); HEMOGLOBIN 11.3 g/dl (12.0-15.5); MEAN CORPUSCULAR HEMOGLOBIN 29.2 pg (27.0-33.0); MEAN CORPUSCULAR HGB CONC 31.6 g/dl (32.0-36.5); MEAN CORPUSCULAR VOLUME 92.5 fl (80.0-96.0); PLATELET COUNT, AUTOMATED 212 10^3/uL (150-450); RED BLOOD COUNT 3.87 10^6/uL (4.00-5.40); WHITE BLOOD COUNT 15.5 10^3/uL (4.0-10.0)
[2018-03-15 09:46] LABS: ANION GAP 6 MEQ/L (8-16); BLOOD UREA NITROGEN 15 MG/DL (7-18); CALCIUM LEVEL 7.9 MG/DL (8.8-10.2); CARBON DIOXIDE LEVEL 26 MEQ/L (21-32); CHLORIDE LEVEL 112 MEQ/L (98-107); CREATININE FOR GFR 0.99 MG/DL (0.55-1.30); GLOMERULAR FILTRATION RATE 56.2 (>32); GLUCOSE, FASTING 120 MG/DL (70-100); POTASSIUM SERUM 3.8 MEQ/L (3.5-5.1); SODIUM LEVEL 144 MEQ/L (136-145)
[2018-03-15 11:26] LABS: BEDSIDE GLUCOSE 92 MG/DL (83-110)
[2018-03-15] MEDS: NS 1,000 ML IV (14:29)
[2018-03-15 17:17] LABS: BEDSIDE GLUCOSE 93 MG/DL (83-110)
[2018-03-15 20:39] LABS: BEDSIDE GLUCOSE 148 MG/DL (83-110)
[2018-03-16] MEDS: NS 1,000 ML IV (00:37)
[2018-03-16] MEDS: HEPARIN SOD (PORCINE) 5000 UNITS/ML VIAL SC (06:29)
[2018-03-16 06:32] LABS: BEDSIDE GLUCOSE 72 MG/DL (83-110)
[2018-03-16] MEDS: HumaLOG INSULIN (NovoLOG) PER UNIT SC (08:08)
[2018-03-16] MEDS: cefTRIAXone SOD 1 GM in D5W MINI-BAG PLUS 50 ML IV (08:41)
[2018-03-16] MEDS: predniSONE 5 MG TAB PO (08:41)
[2018-03-16] MEDS: metFORMIN (GLUCOPHAGE) 500 MG TAB PO (08:42)
[2018-03-16] MEDS: IBUPROFEN 200 MG TAB PO (08:42)
[2018-03-16] MEDS: TRIAMCINOLONE ACET 0.1% OINTMENT 15 GM TOP (08:42)
[2018-03-16] MEDS: PANTOPRAZOLE 40MG TAB (PROTONIX) PO (08:42)
[2018-03-16] MEDS: DONEPEZIL 5 MG TAB PO (08:42)
[2018-03-16] MEDS: ANALGESIC BALM CRM 120 GM TOP (08:42)
[2018-03-16 11:01] LABS: AMORPHOUS SEDIMENT RFX SMALL (NEGATIVE); KETONE, URINE AUTO RFX NEGATIVE (NEGATIVE); MUCUS, URINE RFX SMALL (NEGATIVE); NITRITE, URINE AUTO RFX NEGATIVE (NEGATIVE); RBC, URINE AUTO RFX 2 /HPF (0-3); SPECIFIC GRAVITY UR AUTO RFX 1.009 (1.002-1.035); SQUAM EPITHELIAL CELL UR AURFX 0 /HPF (0-6); WBC, URINE AUTO RFX 6 /HPF (0-3)
[2018-03-16 11:04] LABS: LEUKOCYTE ESTERASE UR AUTO RFX TRACE (NEGATIVE)
== END 2018-03-16 11:33 | disposition home health service (06) | DRG 690 ==
LOC: M MS4PR 03-14 00:48 → M ED 19:03 → M ED INP 22:29
DX: N39.0 Urinary tract infection, site not specified (principal); I50.32 Chronic diastolic (congestive) heart failure; M79.7 Fibromyalgia; F03.90 Unspecified dementia, unspecified severity, without behavioral disturbance, psychotic disturbance, mood disturbance, and anxiety; Z66 Do not resuscitate; E78.49 Other hyperlipidemia; E11.40 Type 2 diabetes mellitus with diabetic neuropathy, unspecified; M17.2 Bilateral post-traumatic osteoarthritis of knee; I11.0 Hypertensive heart disease with heart failure; I25.10 Atherosclerotic heart disease of native coronary artery without angina pectoris; Z95.1 Presence of aortocoronary bypass graft; M35.3 Polymyalgia rheumatica; Z85.72 Personal history of non-Hodgkin lymphomas; G47.33 Obstructive sleep apnea (adult) (pediatric); Z79.899 Other long term (current) drug therapy; Z88.8 Allergy status to other drugs, medicaments and biological substances; M10.9 Gout, unspecified; K21.9 Gastro-esophageal reflux disease without esophagitis; R21 Rash and other nonspecific skin eruption

== ENCOUNTER 2018-06-01 12:48 | Inpatient (IN) | payer MEDICARE ==
[~2018-06-01] VITALS: Ht 162.6 cm; Wt 48.1 kg
[~2018-06-01 12:48] MED LIST changes: +ASPI-222 PO; +ASPI1TAB PO; -ASPI325T28 PO; +AUGM875T28 PO; +BACITAB PO; +CIPR500T3 PO; +DONETAB5 PO; -LASI40TA PO; +LASI40TA9 PO; +LORA1TAB12 PO; -PANT40TA2 PO; +PANT40TA3 PO; +PATIENT COMMENT; +PERCOCET PO; +PRED5PAK PO
[2018-06-01] MEDS ORDERED: NS 1,000 ML IV ONE (13:00)
--- NOTE | 2018-06-01 13:31 | REP ---
The clinical: Trauma. Fall. Technique: AP view of the pelvis with neutral and frog lateral views of the right and left hip. Findings: Age-related osteopenia and moderate degenerative changes are appreciated. No obvious pelvic or hip fracture identified. Impression: Osteopenia and degenerative changes. No obvious acute fracture or dislocation. Electronically Signed by Yaw Conti MD 06/01/2018 01:23 P
--- NOTE | 2018-06-01 13:39 | REP ---
CT Head without contrast HISTORY: Fall COMPARISON: 03/13/2018 Areas of decreased attenuation are present in the basal ganglia. These represent old lacunar infarctions. Areas of decreased attenuation are present in the periventricular and subcortical white matter. This represents small-vessel ischemic disease. There is no intraparenchymal hemorrhage, acute infarct, mass or midline shift. The ventricular system and cortical sulci as well as subarachnoid space in the posterior fossa are dilated consistent with mild volume loss. There is no extra cerebral collection. There is no fracture. T mucosal thickening is present in the ethmoid and left maxillary sinuses. IMPRESSION: 1. Old bilateral basal ganglia lacunar infarctions. 2. Small vessel ischemic disease. 3. Mild volume loss. Electronically Signed by Jordan Ewing MD 06/01/2018 01:31 P
--- NOTE | 2018-06-01 13:44 | REP ---
CT cervical spine without contrast HISTORY: Fall COMPARISON: None There is no acute fracture. A disc bulge is present at the C3-4 level. Disc bulges with associated osteophyte formation are present at the C4-5 through C6-7 levels. There is minimal narrowing of the spinal canal. Uncinate process and/or facet hypertrophy are present at the C2-3 through C6-7 levels. These findings produce minimal to mild narrowing of the neural foramina. The C3-4 through C6-7 intervertebral discs are decreased in height consistent with disc degeneration. There are 1.5 mm of anterior subluxation of C3-4. IMPRESSION: 1. There is no acute fracture or subluxation. 2. There is cervical spondylosis at the C2-3 through C6-7 levels. Electronically Signed by Jordan Ewing MD 06/01/2018 01:35 P
[2018-06-01 14:22] LABS: HEMATOCRIT 37.1 % (36.0-47.0); HEMOGLOBIN 11.7 g/dl (12.0-15.5); MEAN CORPUSCULAR HEMOGLOBIN 29.7 pg (27.0-33.0); MEAN CORPUSCULAR HGB CONC 31.5 g/dl (32.0-36.5); MEAN CORPUSCULAR VOLUME 94.2 fl (80.0-96.0); PLATELET COUNT, AUTOMATED 220 10^3/uL (150-450); RED BLOOD COUNT 3.94 10^6/uL (4.00-5.40)
[2018-06-01 14:26] LABS: WHITE BLOOD COUNT 25.4 10^3/uL (4.0-10.0)
[2018-06-01 14:33] LABS: INR 1.32; PARTIAL THROMBOPLASTIN TIME 37.3 SECONDS (25.4-37.6); PROTHROMBIN TIME 16.6 SECONDS (12.1-14.4)
[2018-06-01 14:45] LABS: ATYPICAL LYMPH 4 % (0-5); LYMPHOCYTES 69 % (16-52); NEUTROPHILS 27 % (35-75)
[2018-06-01 14:48] LABS: PLATELET ESTIMATE NORMAL (NORMAL); SMUDGE CELLS 1+
[2018-06-01 14:55] LABS: ALBUMIN 2.4 GM/DL (3.2-5.2); ALT/SGPT 27 U/L (12-78); AMYLASE 59 U/L (25-115); BILIRUBIN,DIRECT 0.3 MG/DL (0.0-0.2); BILIRUBIN,TOTAL 0.8 MG/DL (0.2-1.0); BLOOD UREA NITROGEN 49 MG/DL (7-18); CALCIUM LEVEL 8.9 MG/DL (8.8-10.2); CARBON DIOXIDE LEVEL 28 MEQ/L (21-32); CHLORIDE LEVEL 105 MEQ/L (98-107); CPK CREATINE PHOSPHOKINASE 64 U/L (26-192); CREATININE FOR GFR 1.01 MG/DL (0.55-1.30); GLOMERULAR FILTRATION RATE 54.9 (>32); GLUCOSE, FASTING 138 MG/DL (70-100); LIPASE 126 U/L (73-393); MB/CK RELATIVE INDEX 1.72 (< OR =4); SODIUM LEVEL 141 MEQ/L (136-145); TOTAL PROTEIN 6.6 GM/DL (6.4-8.2); TROPONIN I < 0.02 NG/ML (< 0.10)
[2018-06-01] MEDS ORDERED: NS 500 ML IV ONE (17:00)
[2018-06-01] MEDS ORDERED: PATIENT COMMENT (17:45)
--- NOTE | 2018-06-01 18:34 | HPE ---
DATE OF ADMISSION: 06/01/2018 This is an 87-year-old female with a past medical history of hypertension, diabetes, hyperlipidemia, coronary artery disease, status post coronary artery bypass graft (CABG), history of chronic lymphocytic leukemia (CLL), who presents to the emergency room after being found by her daughter on the floor. Apparently, she did not fall. She said she felt so weak that she let herself down on the floor, because she was afraid of falling. She has fallen once approximately 3 weeks ago but since then has been having these multiple events where she would lie on the ground, because she cannot move. She denies any chest pain, shortness of breath, any vertigo, or any syncopal event, and she will be admitted for further management. PAST MEDICAL HISTORY: 1. Fibromyalgia. 2. Polymyalgia rheumatica. 3. Coronary artery disease, status post CABG. 4. Hypertension. 5. Hyperlipidemia. 6. Diabetes. 7. Chronic low back pain. 8. Chronic systolic heart failure. DRUG ALLERGIES: STATINS. FAMILY HISTORY: Noncontributory. SOCIAL HISTORY: Patient denies tobacco, alcohol, or illicit drugs. HOME MEDICATIONS: - donepezil 5 mg orally daily - Lasix 40 mg orally daily - metformin 500 mg orally twice daily - pantoprazole 40 mg orally daily - prednisone 5 mg orally daily REVIEW OF SYSTEMS: Negative for [id number] systems except what is mentioned in the history of present illness (HPI). VITAL SIGNS: Blood pressure 137/66, heart rate 75, regular, respiratory rate is 16, temperature 99.4, oxygen saturation 96% on room air. HEAD: Normocephalic, atraumatic. NECK: Supple. No jugular venous distention (JVD). LUNGS: Clear to auscultation. HEART: S1, S2 audible. No murmurs appreciated. ABDOMEN: Soft. Positive bowel sounds. No pedal edema. SKIN: Intact. NEUROLOGIC: Patient awake, alert, oriented times three. LABORATORY DATA: Sodium 141, potassium 4.0, chloride 105, CO2 of 28, BUN 49, creatinine 1.01, glucose 138. Troponin less than 0.02. Lipase 126. CK is 64. WBC 25.4, hemoglobin 11.7, hematocrit 37.1, platelets 220,000. Urinalysis is negative for urinary tract infection (UTI). IMPRESSION: Debility. PLAN: Patient will be admitted to the medical/surgical floor. We will continue all preadmission medications and have physical therapy (PT) see her in the morning. Patient will likely need subacute rehabilitation. I will also have social organization professor involved, because the patient would like to eventually be in an assisted-living facility if possible.
[2018-06-01 20:30] VITALS: BP 136/65
[2018-06-01] MEDS ORDERED: DEXTROSE 50% 50 ML SYRINGE IV PRN (21:15)
[2018-06-01] MEDS ORDERED: GLUCOSE 4 GM CHEW TABLET PO PRN (21:15)
[2018-06-01] MEDS ORDERED: GLUCAGON FOR INJ 1 MG VIAL (J1610) SC PRN (21:15)
[2018-06-02 06:00] VITALS: BP 109/56
[2018-06-02] MEDS: HumaLOG INSULIN (NovoLOG) PER UNIT SC SCH ×3 (07:30→17:30)
[2018-06-02] MEDS: DONEPEZIL 5 MG TAB PO SCH (08:59)
[2018-06-02] MEDS: PANTOPRAZOLE 40MG TAB (PROTONIX) PO SCH (09:00)
[2018-06-02 14:00] VITALS: BP 111/56
--- NOTE | 2018-06-02 15:08 | ECHO ---
DATE OF SERVICE: 06/02/2018 REFERRING PROVIDER: Dr. Lowe PATIENT LOCATION: Room 5156 REASON FOR ECHOCARDIOGRAM: Shortness of breath. 2D MEASUREMENTS: IVS: 1.8 cm LV: 3.5 cm LVPW: 0.8 cm LA: 3.0 cm Aorta: 3.2 cm IVC: 1.5 cm DOPPLER MEASUREMENTS: Peak velocity across the aortic valve: 1.2 m/s Peak velocity across the LVOT: 1.0 m/s Mitral E: 0.9 Mitral A: 0.67 with a ratio of 1.3 Maximum tricuspid valve velocity: 2.3 m/s 2D COMMENTS: 1. Normal left ventricular size, wall thickness, and normal global left ventricular systolic function. The estimated global left ventricular systolic ejection fraction is 60-65%. 2. Subjectively, the left atrium and the right atrium minimally enlarged. Normal right ventricle. 3. The atrial septum appeared to be normal without evidence of defect or shunt. 4. Normal aortic root. 5. No pericardial effusions seen. 6. Minimal calcified aortic valve with normal leaflet excursion. Mildly calcified mitral annulus with normal anterior mitral valve leaflet motion. Normal tricuspid valve and pulmonic valve. The proximal pulmonary artery branches were not visualized. 7. The inferior vena cava was normal in size, central venous pressure is most likely normal. Doppler, it detects trace mitral regurgitation, mild to moderate mitral regurgitation, mild to mild tricuspid regurgitation. The calculated pulmonary artery systolic pressure is between 30 to 35 mmHg. Assessment of the left ventricular diastolic function appeared to be normal. IMPRESSION: 1. Normal global left ventricular systolic and diastolic function. 2. Aortic valve sclerosis with trace aortic regurgitation but no aortic stenosis. 3. Mitral anular regurgitation with mild to mild mitral regurgitation and subjectively mildly enlarged left atrium. 4. Mild to moderate tricuspid regurgitation with mild pulmonary hypertension.
--- NOTE | 2018-06-02 18:09 | ECGEPIP ---
Stationary ECG Study [facility] - ED Test Date: 2018-06-01 Pat Name: ABRIL BROWN Department: Room: - Gender: F [employer]: [facility] : 1930 Requested By: ERIC Dahl Order Number: [id number] Reading MD: Librado Landeros Measurements Intervals [place] Rate: 67 P: IN: 0 QRS: 31 QRSD: 85 T: 17 QT: 418 QTc: 444 Interpretive Statements ATRIAL FIBRILLATION ABNORMAL RHYTHM ECG LOW QRS VOLTAGE LIMB LEADS DELAYED R WAVE PROGRESSION CW 03/13/[address] T WAVE CHANGES POSSIBLE NEW RHYTHM Electronically Signed On 06-02-2018 18:08:22 EST by Librado Landeros
[2018-06-02] MEDS ORDERED: HumaLOG INSULIN (NovoLOG) PER UNIT SC SCH (21:00)
[2018-06-02 22:00] VITALS: BP 147/67
--- NOTE | 2018-06-02 22:43 | IPNPDOC ---
Text Note Date of Service The patient was seen on 06/02/18. NOTE SUBJECTIVE: Does not offer any complaints this am. Says feeling humgry and will eat breakfast. denies any back pain . denies any abdominal pain , nausea or vomiting or diarrhea, No fever or shills. Does not know why she is in the hospital says that her daughter wanted her to come to the hospital. knows the name of the hospital , month and year and person but confused about when she was admitted and which day she came in. Does not remember when she fell at home but says several days ago. PHYSICL EXAM: VITAL SIGNS: As below GENERAL: frail elderly pastor eliin in bed in no acute distress. HEAD: Normocephalic, atraumatic. Moist mucous membranes, anicteric eyes. NECK: Supple. No jugular venous distention (JVD). LUNGS: Clear to auscultation. HEART: S1, S2 audible. No murmurs appreciated. ABDOMEN: Soft. Positive bowel sounds. No pedal edema. SKIN: Intact. NEUROLOGIC: Patient awake, alert, oriented to place, person . knows th month and year. Labs and Radiology: reviewed. ASSESSMENT and PLAN: This is an 87-year-old female with a past medical history of dementia, hypertension, diabetes, hyperlipidemia, coronary artery disease, status post coronary artery bypass graft (CABG), history of chronic lymphocytic leukemia (CLL), fibromyalgia, polymyalgia rheumatica, chronic low back pain who presents to the emergency room after being found by her daughter on the floor. Apparently, she did not fall. She said she felt so weak that she let herself down on the floor, because she was afraid of falling. She has fallen once approximately 3 weeks ago but since then has been having these multiple events where she would lie on the ground, because she cannot move. She was admitted for weakness, difficulty in ambulation and recent history of falls. Weakness and Falls This is due to advancing age with genealized muscle deconditioning also has severe kyphoscoliosis and dementia which may be contributing to her falls will get CT lumber spine to evaluate for any spinal canal stenois or radiculopthy CT cervical spine shows cervical spondylosis and minimal canal stenosis. PT and PT evaluation Dementia continue home medication Protein Calorie malnutrition due to age and demntia encourage ora intake will offer ensure. CLL has chronically elevated WBC which not much changed from usual Fibromyagia and polymyalgiarheumatice continue prednisone. Diabetes sugars well controlled. Off metformin probably will not need any medications at home. will dc insulin CAD with h/o CABG no issues at present echo reviewed. Hyperlipidemia probably not an issue at present due to malnutrition will not give any statin. GERD will continue PPI DVT prophylaxis has been ordered Disposition: Home with services. VS,Fishbone, I+O VS, Fishbone, I+O Vital Signs Date Time Temp Pulse Resp B/P (MAP) Pulse Ox O2 Delivery O2 Flow Rate FiO2 06/02/18 14:00 98.3 72 16 111/56 (74) 96 06/01/18 20:06 Room Air I&O- Last 24 Hours up to 6 AM 06/02/18 06:00 Intake Total 240 ml Output Total 50 ml Balance 190 ml ANDREWS GARCIA MD Jun 02, 2018 22:43
[2018-06-03 06:00] VITALS: BP 138/63
[2018-06-03] MEDS: predniSONE 5 MG TAB PO SCH (08:18)
[2018-06-03] MEDS: DONEPEZIL 5 MG TAB PO SCH (08:18)
[2018-06-03] MEDS: PANTOPRAZOLE 40MG TAB (PROTONIX) PO SCH (08:18)
--- NOTE | 2018-06-03 13:28 | IPNPDOC ---
Text Note Date of Service The patient was seen on 06/03/18. NOTE SUBJECTIVE: Does not offer any complaints this am. denies any back pain . denies any abdominal pain , nausea or vomiting or diarrhea, No fever or shills. Working with PT. PHYSICAL EXAM: VITAL SIGNS: As below GENERAL: frail elderly pastor eliin in bed in no acute distress. HEAD: Normocephalic, atraumatic. Moist mucous membranes, anicteric eyes. NECK: Supple. No jugular venous distention (JVD). LUNGS: Clear to auscultation. HEART: S1, S2 audible. No murmurs appreciated. ABDOMEN: Soft. Positive bowel sounds. No pedal edema. SKIN: Intact. NEUROLOGIC: Patient awake, alert, oriented to place, person . knows the month and year. Labs and Radiology: reviewed. ASSESSMENT and PLAN: This is an 87-year-old female with a past medical history of dementia, hypertension, diabetes, hyperlipidemia, coronary artery disease, status post coronary artery bypass graft (CABG), history of chronic lymphocytic leukemia (CLL), fibromyalgia, polymyalgia rheumatica, chronic low back pain who presents to the emergency room after being found by her daughter on the floor. Apparently, she did not fall. She said she felt so weak that she let herself down on the floor, because she was afraid of falling. She has fallen once approximately 3 weeks ago but since then has been having these multiple events where she would lie on the ground, because she cannot move. She was admitted for weakness, difficulty in ambulation and recent history of falls. Weakness and Falls This is due to advancing age with genealized muscle deconditioning also has severe kyphoscoliosis and dementia which may be contributing to her falls will get CT lumber spine to evaluate for any spinal canal stenosis or radiculopathy CT cervical spine shows cervical spondylosis and minimal canal stenosis. PT and PT evaluation Dementia continue home medication Protein Calorie malnutrition due to age and demntia encourage ora intake will offer ensure. CLL has chronically elevated WBC which not much changed from usual Fibromyalgia and polymyalgia rheumatica continue prednisone. Diabetes sugars well controlled. Off metformin probably will not need any medications at home. will dc insulin CAD with h/o CABG no issues at present echo reviewed. Hyperlipidemia probably not an issue at present due to malnutrition will not give any statin. GERD will continue PPI DVT prophylaxis has been ordered Disposition: Home with services. VS,Fishbone, I+O VS, Fishbone, I+O Vital Signs Date Time Temp Pulse Resp B/P (MAP) Pulse Ox O2 Delivery O2 Flow Rate FiO2 06/03/18 06:00 100.2 72 18 138/63 (88) 94 06/01/18 20:06 Room Air I&O- Last 24 Hours up to 6 AM 06/03/18 06:00 Intake Total 1800 ml Output Total 0 ml Balance 1800 ml ANDREWS GARCIA MD Jun 03, 2018 07:31
[2018-06-03 14:00] VITALS: BP 117/58
[2018-06-03] MEDS: ENOXAPARIN 30 MG/0.3 ML SYR (J1650) SC SCH (14:21)
[2018-06-03 22:00] VITALS: BP 117/64
[2018-06-04 06:00] VITALS: BP 108/58
[2018-06-04 07:43] LABS: HEMATOCRIT 32.3 % (36.0-47.0); HEMOGLOBIN 10.4 g/dl (12.0-15.5); MEAN CORPUSCULAR HEMOGLOBIN 29.2 pg (27.0-33.0); MEAN CORPUSCULAR HGB CONC 32.2 g/dl (32.0-36.5); MEAN CORPUSCULAR VOLUME 90.7 fl (80.0-96.0); PLATELET COUNT, AUTOMATED 316 10^3/uL (150-450); RED BLOOD COUNT 3.56 10^6/uL (4.00-5.40)
[2018-06-04 08:04] LABS: WHITE BLOOD COUNT 32.9 10^3/uL (4.0-10.0)
[2018-06-04 08:07] LABS: BLOOD UREA NITROGEN 27 MG/DL (7-18); CALCIUM LEVEL 8.1 MG/DL (8.8-10.2); CARBON DIOXIDE LEVEL 26 MEQ/L (21-32); CHLORIDE LEVEL 107 MEQ/L (98-107); CREATININE FOR GFR 0.76 MG/DL (0.55-1.30); GLOMERULAR FILTRATION RATE > 60.0 (>32); GLUCOSE, FASTING 101 MG/DL (70-100); POTASSIUM SERUM 3.9 MEQ/L (3.5-5.1); SODIUM LEVEL 140 MEQ/L (136-145)
[2018-06-04 08:42] LABS: ATYPICAL LYMPH 4 % (0-5); LYMPHOCYTES 64 % (16-52); MONOCYTES 4 % (0-8); NEUTROPHILS 26 % (35-75); PLATELET ESTIMATE NORMAL (NORMAL)
[2018-06-04 08:43] LABS: ANISOCYTOSIS 1+; SMUDGE CELLS 1+; TOXIC GRANULATION 1+
[2018-06-04] MEDS: predniSONE 5 MG TAB PO SCH (09:01)
[2018-06-04] MEDS: DONEPEZIL 5 MG TAB PO SCH (09:01)
[2018-06-04] MEDS: PANTOPRAZOLE 40MG TAB (PROTONIX) PO SCH (09:01)
[2018-06-04] MEDS: ENOXAPARIN 30 MG/0.3 ML SYR (J1650) SC SCH (09:02)
[2018-06-04 14:00] VITALS: BP 134/63
--- NOTE | 2018-06-04 14:09 | IPNPDOC ---
Text Note Date of Service The patient was seen on 06/04/18. NOTE SUBJECTIVE: Does not offer any complaints this am. denies any back pain . den ies any abdominal pain , nausea or vomiting or diarrhea, No fever or shills. Working with PT. PHYSICAL EXAM: VITAL SIGNS: As below GENERAL: frail elderly pastor eliin in bed in no acute distress. HEAD: Normocephalic, atraumatic. Moist mucous membranes, anicteric eyes. NECK: Supple. No jugular venous distention (JVD). LUNGS: Clear to auscultation. HEART: S1, S2 audible. No murmurs appreciated. ABDOMEN: Soft. Positive bowel sounds. No pedal edema. SKIN: Intact. NEUROLOGIC: Patient awake, alert, oriented to place, person . knows the month and year. Labs and Radiology: reviewed. ASSESSMENT and PLAN: This is an 87-year-old female with a past medical history of dementia, hypertension, diabetes, hyperlipidemia, coronary artery disease, status post coronary artery bypass graft (CABG), history of chronic lymphocytic leukemia (CLL), fibromyalgia, polymyalgia rheumatica, chronic low back pain who presents to the emergency room after being found by her daughter on the floor. Apparently, she did not fall. She said she felt so weak that she let herself down on the floor, because she was afraid of falling. She has fallen once approximately 3 weeks ago but since then has been having these multiple events where she would lie on the ground, because she cannot move. She was admitted for weakness, difficulty in ambulation and recent history of falls. Weakness and Falls This is due to advancing age with genealized muscle deconditioning also has severe kyphoscoliosis and dementia which may be contributing to her falls will get CT lumber spine to evaluate for any spinal canal stenosis or radiculopathy CT cervical spine shows cervical spondylosis and minimal canal stenosis. PT and PT evaluation Dementia continue home medication Protein Calorie malnutrition due to age and demntia encourage ora intake will offer ensure. CLL has chronically elevated WBC which is now higher. But platelet in ok. HH slight drop. there is always a possibility of it transforming to acute leukaemia so if continues to worsen may need oncology evaluation. Fibromyalgia and polymyalgia rheumatica continue prednisone. Diabetes sugars well controlled. Off metformin probably will not need any medications at home. will dc insulin CAD with h/o CABG no issues at present echo reviewed. Hyperlipidemia probably not an issue at present due to malnutrition will not give any statin. GERD will continue PPI DVT prophylaxis has been ordered Disposition: Home with services. BRIANNA,Keith, I+O VS, Keith, I+O Laboratory Tests 06/04/18 07:17 Red Blood Count 3.56 L, Mean Corpuscular Volume 90.7, Mean Corpuscular Hemoglobin 29.2, Mean Corpuscular Hemoglobin Concent 32.2, Red Cell Distribution Width 14.4, Lymphocytes # (Auto) , Calcium Level 8.1 L Vital Signs Date Time Temp Pulse Resp B/P (MAP) Pulse Ox O2 Delivery O2 Flow Rate FiO2 06/04/18 06:00 97.4 63 18 108/58 (75) 95 06/01/18 20:06 Room Air I&O- Last 24 Hours up to 6 AM 06/04/18 06:00 Intake Total 1220 ml Output Total 50 ml Balance 1170 ml ANDREWS GARCIA MD Jun 04, 2018 14:09
[2018-06-04 22:00] VITALS: BP 138/65
[2018-06-05 06:00] VITALS: BP 150/68
[2018-06-05 06:50] LABS: HEMATOCRIT 32.4 % (36.0-47.0); HEMOGLOBIN 10.5 g/dl (12.0-15.5); MEAN CORPUSCULAR HEMOGLOBIN 29.9 pg (27.0-33.0); MEAN CORPUSCULAR HGB CONC 32.4 g/dl (32.0-36.5); MEAN CORPUSCULAR VOLUME 92.3 fl (80.0-96.0); PLATELET COUNT, AUTOMATED 332 10^3/uL (150-450); RED BLOOD COUNT 3.51 10^6/uL (4.00-5.40)
[2018-06-05 07:03] LABS: WHITE BLOOD COUNT 34.3 10^3/uL (4.0-10.0)
[2018-06-05 07:09] LABS: ATYPICAL LYMPH 4 % (0-5); LYMPHOCYTES 60 % (16-52); MONOCYTES 1 % (0-8); NEUTROPHILS 34 % (35-75)
[2018-06-05 07:10] LABS: PLATELET ESTIMATE NORMAL (NORMAL)
[2018-06-05 07:11] LABS: TOXIC GRANULATION 1+
[2018-06-05 08:10] LABS: BLOOD UREA NITROGEN 24 MG/DL (7-18); CALCIUM LEVEL 7.6 MG/DL (8.8-10.2); CARBON DIOXIDE LEVEL 25 MEQ/L (21-32); CHLORIDE LEVEL 108 MEQ/L (98-107); CREATININE FOR GFR 0.66 MG/DL (0.55-1.30); GLOMERULAR FILTRATION RATE > 60.0 (>32); GLUCOSE, FASTING 83 MG/DL (70-100); POTASSIUM SERUM 4.1 MEQ/L (3.5-5.1); SODIUM LEVEL 141 MEQ/L (136-145)
[2018-06-05] MEDS: PANTOPRAZOLE 40MG TAB (PROTONIX) PO SCH (08:34)
[2018-06-05] MEDS: DONEPEZIL 5 MG TAB PO SCH (08:34)
[2018-06-05] MEDS: ENOXAPARIN 30 MG/0.3 ML SYR (J1650) SC SCH (08:34)
[2018-06-05] MEDS: predniSONE 5 MG TAB PO SCH (08:34)
--- NOTE | 2018-06-05 08:35 | REP ---
Clinical: Fall. Lower extremity weakness. Technique: Axial noncontrast images from T12 through the distal sacrum with coronal and sagittal re-formations. Findings: Age-related osteopenia and moderate to advanced multilevel degenerative changes are appreciated. Findings include endplate sclerosis, disc space narrowing, and hypertrophic facet changes primarily involving the L4-5 and L5-S1 levels and to a lesser extent the L2-3 and L3-4 levels. There is no evidence for acute fracture / compression injury or subluxation. Neural foramen appear patent bilaterally by noncontrast CT evaluation. Evidence for moderate disc bulges and mild canal stenosis at the L4-5 and to a slightly lesser extent the L5-S1 levels. Mild posterior disc bulge is also noted at the L2-3 level. Impression: 1. Age-related osteopenia with moderate to advanced multilevel degenerative spondylosis. There is no evidence for acute fracture / compression injury or subluxation. 2. Consider MRI for further more definitive evaluation if symptoms persist. Electronically Signed by Yaw Conti MD 06/05/2018 08:26 A
[2018-06-05 14:00] VITALS: BP 115/56
--- NOTE | 2018-06-05 20:14 | IPNPDOC ---
Date Seen The patient was seen on 06/05/18. Progress Note SUBJECTIVE: denies fever chills cough dysuria sob. wbc increased from baseline. smear: no blasts. c/o generalized weakness. awaiting pt clearance. no signs of acute infection or acute leukemia. PHYSICAL EXAM: VITAL SIGNS: As below GENERAL: frail elderly pastor eliin in bed in no acute distress. HEAD: Normocephalic, atraumatic. Moist mucous membranes, anicteric eyes. NECK: Supple. No jugular venous distention (JVD). LUNGS: Clear to auscultation. HEART: S1, S2 audible. No murmurs appreciated. ABDOMEN: Soft. Positive bowel sounds. No pedal edema. SKIN: Intact. NEUROLOGIC: Patient awake, alert, oriented to place, person . knows the month and year. Labs and Radiology: reviewed. ASSESSMENT and PLAN: This is an 87-year-old female with a past medical history of dementia, hypertension, diabetes, hyperlipidemia, coronary artery disease, status post coronary artery bypass graft (CABG), history of chronic lymphocytic leukemia (CLL), fibromyalgia, polymyalgia rheumatica, chronic low back pain who presents to the emergency room after being found by her daughter on the floor. Apparently, she did not fall. She said she felt so weak that she let herself down on the floor, because she was afraid of falling. She has fallen once approximately 3 weeks ago but since then has been having these multiple events where she would lie on the ground, because she cannot move. She was admitted for weakness, difficulty in ambulation and recent history of falls. Weakness and Falls This is due to advancing age with genealized muscle deconditioning also has severe kyphoscoliosis and dementia which may be contributing to her falls will get CT lumber spine to evaluate for any spinal canal stenosis or radiculopathy CT cervical spine shows cervical spondylosis and minimal canal stenosis. PT and PT evaluation Dementia continue home medication Protein Calorie malnutrition due to age and demntia encourage ora intake will offer ensure. CLL has chronically elevated WBC which is now higher. But platelet in ok. HH slight drop. there is always a possibility of it transforming to acute leukaemia so if continues to worsen may need oncology evaluation. Fibromyalgia and polymyalgia rheumatica continue prednisone. Diabetes sugars well controlled. Off metformin probably will not need any medications at home. will dc insulin CAD with h/o CABG no issues at present echo reviewed. Hyperlipidemia probably not an issue at present due to malnutrition will not give any statin. GERD will continue PPI DVT prophylaxis has been ordered Disposition: Home with services. VS, I&O, 24H, Fishbone Vital Signs/I&O Vital Signs Date Time Temp Pulse Resp B/P (MAP) Pulse Ox O2 Delivery O2 Flow Rate FiO2 06/04/18 22:00 97.5 68 18 138/65 (89) 97 06/01/18 20:06 Room Air I&O- Last 24 Hours up to 6 AM 06/05/18 06:00 Intake Total 540 ml Output Total 0 ml Balance 540 ml Laboratory Data 24H LABS Laboratory Tests 2 06/04/18 07:17: White Blood Count 32.9*H, Red Blood Count 3.56L, Hemoglobin 10.4L, Hematocrit 32.3L, Mean Corpuscular Volume 90.7, Mean Corpuscular Hemoglobin 29.2, Mean Corpuscular Hemoglobin Concent 32.2, Red Cell Distribution Width 14.4, Platelet Count 316, Lymphocytes # (Auto) , Nucleated Red Blood Cells % (auto) 0.0, Neutrophils 26L, Band Neutrophils 2, Lymphocytes (Manual) 64H, Monocytes (Manual) 4, Atypical Lymphocytes 4, Smudge Cells 1+, Toxic Granulation 1+, Platelet Estimate NORMAL, Anisocytosis 1+, Anion Gap 7L, Glomerular Filtration Rate > 60.0, Blood Urea Nitrogen 27H, Creatinine 0.76, Sodium Level 140, Potassium Level 3.9, Chloride Level 107, Carbon Dioxide Level 26, Calcium Level 8.1L 06/04/18 16:21: Bedside Glucose (Misc Panel) 139H CBC/BMP Laboratory Tests 06/04/18 07:17 Red Blood Count 3.56 L, Mean Corpuscular Volume 90.7, Mean Corpuscular Hemoglobin 29.2, Mean Corpuscular Hemoglobin Concent 32.2, Red Cell Distribution Width 14.4, Lymphocytes # (Auto) , Calcium Level 8.1 L Microbiology Microbiology 06/01/18 Blood Culture - Preliminary, Resulted No Growth after 72 hours. All specime... 06/01/18 Blood Culture - Preliminary, Resulted No Growth after 72 hours. All specime... RADHA HALLMAN MD Jun 05, 2018 04:41
[2018-06-05 22:00] VITALS: BP 114/58
[2018-06-06 06:00] VITALS: BP 142/65
[2018-06-06 06:51] LABS: HEMATOCRIT 31.6 % (36.0-47.0); HEMOGLOBIN 9.9 g/dl (12.0-15.5); MEAN CORPUSCULAR HGB CONC 31.3 g/dl (32.0-36.5); MEAN CORPUSCULAR VOLUME 92.7 fl (80.0-96.0); PLATELET COUNT, AUTOMATED 389 10^3/uL (150-450); RED BLOOD COUNT 3.41 10^6/uL (4.00-5.40)
[2018-06-06 06:56] LABS: WHITE BLOOD COUNT 34.9 10^3/uL (4.0-10.0)
[2018-06-06 07:15] LABS: BLOOD UREA NITROGEN 27 MG/DL (7-18); CALCIUM LEVEL 7.9 MG/DL (8.8-10.2); CARBON DIOXIDE LEVEL 28 MEQ/L (21-32); CHLORIDE LEVEL 108 MEQ/L (98-107); GLOMERULAR FILTRATION RATE > 60.0 (>32); GLUCOSE, FASTING 78 MG/DL (70-100); POTASSIUM SERUM 4.5 MEQ/L (3.5-5.1); SODIUM LEVEL 142 MEQ/L (136-145)
[2018-06-06 07:23] LABS: ATYPICAL LYMPH 3 % (0-5); EOSINOPHILS 2 % (0-5); LYMPHOCYTES 75 % (16-52); MONOCYTES 2 % (0-8); NEUTROPHILS 18 % (35-75)
[2018-06-06 07:25] LABS: ANISOCYTOSIS 1+; PLATELET ESTIMATE NORMAL (NORMAL); SMUDGE CELLS 1+
[2018-06-06 08:30] VITALS: BP 138/66
[2018-06-06 09:00] VITALS: BP 138/66
[2018-06-06] MEDS: DONEPEZIL 5 MG TAB PO SCH (09:36)
[2018-06-06] MEDS: PANTOPRAZOLE 40MG TAB (PROTONIX) PO SCH (09:36)
[2018-06-06] MEDS: predniSONE 5 MG TAB PO SCH (09:37)
[2018-06-06] MEDS: ENOXAPARIN 30 MG/0.3 ML SYR (J1650) SC SCH (09:37)
--- NOTE | 2018-06-06 09:44 | IPNPDOC ---
Date Seen The patient was seen on 06/06/18. Progress Note SUBJECTIVE: Pt refused physical therapy yesterday. denies fever chills cough dysuria sob. wbc increased from baseline. smear: no blasts. c/o generalized weakness. awaiting pt clearance. no signs of acute infection or acute leukemia. PHYSICAL EXAM: VITAL SIGNS: As below GENERAL: frail elderly pastor eliin in bed in no acute distress. HEAD: Normocephalic, atraumatic. Moist mucous membranes, anicteric eyes. NECK: Supple. No jugular venous distention (JVD). LUNGS: Clear to auscultation. HEART: S1, S2 audible. No murmurs appreciated. ABDOMEN: Soft. Positive bowel sounds. No pedal edema. SKIN: Intact. NEUROLOGIC: Patient awake, alert, oriented to place, person . knows the month and year. Labs and Radiology: reviewed. ASSESSMENT and PLAN: This is an 87-year-old female with a past medical history of dementia, hypertension, diabetes, hyperlipidemia, coronary artery disease, status post coronary artery bypass graft (CABG), history of chronic lymphocytic leukemia (CLL), fibromyalgia, polymyalgia rheumatica, chronic low back pain who presents to the emergency room after being found by her daughter on the floor. Apparently, she did not fall. She said she felt so weak that she let herself down on the floor, because she was afraid of falling. She has fallen once approximately 3 weeks ago but since then has been having these multiple events where she would lie on the ground, because she cannot move. She was admitted for weakness, difficulty in ambulation and recent history of falls. Weakness and Falls This is due to advancing age with genealized muscle deconditioning also has severe kyphoscoliosis and dementia which may be contributing to her falls will get CT lumber spine to evaluate for any spinal canal stenosis or radiculopathy CT cervical spine shows cervical spondylosis and minimal canal stenosis. PT and PT evaluation Dementia continue home medication Protein Calorie malnutrition due to age and demntia encourage ora intake will offer ensure. CLL has chronically elevated WBC which is now higher. But platelet in ok. HH slight drop. there is always a possibility of it transforming to acute leukaemia so if continues to worsen may need oncology evaluation. Fibromyalgia and polymyalgia rheumatica continue prednisone. Diabetes sugars well controlled. Off metformin probably will not need any medications at home. will dc insulin CAD with h/o CABG no issues at present echo reviewed. Hyperlipidemia probably not an issue at present due to malnutrition will not give any statin. GERD will continue PPI DVT prophylaxis has been ordered Disposition: Home with services. VS, I&O, 24H, Fishbone Vital Signs/I&O Vital Signs Date Time Temp Pulse Resp B/P (MAP) Pulse Ox O2 Delivery O2 Flow Rate FiO2 06/06/18 06:00 99.1 68 16 142/65 (90) 95 06/01/18 20:06 Room Air I&O- Last 24 Hours up to 6 AM 06/06/18 06:00 Intake Total 1640 ml Balance 1640 ml Laboratory Data 24H LABS Laboratory Tests 2 06/05/18 16:35: Bedside Glucose (Misc Panel) 197H 06/06/18 06:34: Anion Gap 6L, Glomerular Filtration Rate > 60.0, Blood Urea Nitrogen 27H, Creatinine 0.70, Sodium Level 142, Potassium Level 4.5, Chloride Level 108H, Carbon Dioxide Level 28, Calcium Level 7.9L 06/06/18 06:35: White Blood Count 34.9*H, Red Blood Count 3.41L, Hemoglobin 9.9L, Hematocrit 31.6L, Mean Corpuscular Volume 92.7, Mean Corpuscular Hemoglobin 29.0, Mean Corpuscular Hemoglobin Concent 31.3L, Red Cell Distribution Width 14.3, Platelet Count 389, Lymphocytes # (Auto) , Nucleated Red Blood Cells % (auto) 0.0, Neutrophils 18L, Lymphocytes (Manual) 75H, Monocytes (Manual) 2, Eosinophils (Manual) 2, Atypical Lymphocytes 3, Smudge Cells 1+, Platelet Estimate NORMAL, Anisocytosis 1+ CBC/BMP Laboratory Tests 06/06/18 06:34 Calcium Level 7.9 L 06/06/18 06:35 Red Blood Count 3.41 L, Mean Corpuscular Volume 92.7, Mean Corpuscular Hemoglobin 29.0, Mean Corpuscular Hemoglobin Concent 31.3 L, Red Cell Distribution Width 14.3, Lymphocytes # (Auto) Microbiology Microbiology 06/01/18 Blood Culture - Preliminary, Resulted No Growth after 72 hours. All specime... 06/01/18 Blood Culture - Preliminary, Resulted No Growth after 72 hours. All specime... RADHA HALLMAN MD Jun 06, 2018 07:47
[2018-06-06 14:00] VITALS: BP 132/62
[2018-06-06 22:00] VITALS: BP 157/82
[2018-06-07 06:00] VITALS: BP 150/66
[2018-06-07 07:09] LABS: HEMATOCRIT 31.5 % (36.0-47.0); HEMOGLOBIN 10.2 g/dl (12.0-15.5); MEAN CORPUSCULAR HEMOGLOBIN 29.1 pg (27.0-33.0); MEAN CORPUSCULAR HGB CONC 32.4 g/dl (32.0-36.5); PLATELET COUNT, AUTOMATED 413 10^3/uL (150-450)
[2018-06-07 07:11] LABS: WHITE BLOOD COUNT 34.8 10^3/uL (4.0-10.0)
--- NOTE | 2018-06-07 07:20 | IPNPDOC ---
Date Seen The patient was seen on 06/07/18. Progress Note SUBJECTIVE: Per family, pt cannot go home and they are having difficulty providing 24/10 care. per physical therapy, 24/7 care vs snf [facility]. pfs consulted. no new issues per pt. "I want to go home to my little apartment and my cat. My daughter is taking care of my cat." PHYSICAL EXAM: VITAL SIGNS: As below GENERAL: frail elderly pastor torres in bed in no acute distress. HEAD: Normocephalic, atraumatic. Moist mucous membranes, anicteric eyes. NECK: Supple. No jugular venous distention (JVD). LUNGS: Clear to auscultation. HEART: S1, S2 audible. No murmurs appreciated. ABDOMEN: Soft. Positive bowel sounds. No pedal edema. SKIN: Intact. NEUROLOGIC: Patient awake, alert, oriented to place, person . knows the month and year. Labs and Radiology: reviewed. ASSESSMENT and PLAN: This is an 87-year-old female with a past medical history of dementia, hypertension, diabetes, hyperlipidemia, coronary artery disease, status post coronary artery bypass graft (CABG), history of chronic lymphocytic leukemia (CLL), fibromyalgia, polymyalgia rheumatica, chronic low back pain who presents to the emergency room after being found by her daughter on the floor. Apparently, she did not fall. She said she felt so weak that she let herself down on the floor, because she was afraid of falling. She has fallen once approximately 3 weeks ago but since then has been having these multiple events where she would lie on the ground, because she cannot move. She was admitted for weakness, difficulty in ambulation and recent history of falls. Weakness and Falls This is due to advancing age with genealized muscle deconditioning also has severe kyphoscoliosis and dementia which may be contributing to her falls will get CT lumber spine to evaluate for any spinal canal stenosis or radiculopathy CT cervical spine shows cervical spondylosis and minimal canal stenosis. PT and PT evaluation Dementia continue home medication Protein Calorie malnutrition due to age and demntia encourage ora intake will offer ensure. CLL has chronically elevated WBC which is now higher. But platelet in ok. HH slight drop. there is always a possibility of it transforming to acute leukaemia so if continues to worsen may need oncology evaluation. Fibromyalgia and polymyalgia rheumatica continue prednisone. Diabetes sugars well controlled. Off metformin probably will not need any medications at home. will dc insulin CAD with h/o CABG no issues at present echo reviewed. Hyperlipidemia probably not an issue at present due to malnutrition will not give any statin. GERD will continue PPI DVT prophylaxis has been ordered Disposition:24/10 care vs snf. VS, I&O, 24H, Fishbone Vital Signs/I&O Vital Signs Date Time Temp Pulse Resp B/P (MAP) Pulse Ox O2 Delivery O2 Flow Rate FiO2 06/07/18 06:00 97.7 62 16 150/66 (94) 95 06/01/18 20:06 Room Air I&O- Last 24 Hours up to 6 AM 06/07/18 06:00 Intake Total 1780 ml Balance 1780 ml Laboratory Data 24H LABS Laboratory Tests 2 06/06/18 16:23: Bedside Glucose (Misc Panel) 144H 06/07/18 06:36: White Blood Count 34.8*H, Red Blood Count 3.50L, Hemoglobin 10.2L, Hematocrit 31.5L, Mean Corpuscular Volume 90.0, Mean Corpuscular Hemoglobin 29.1, Mean Corpuscular Hemoglobin Concent 32.4, Red Cell Distribution Width 14.3, Platelet Count 413, Lymphocytes # (Auto) , Nucleated Red Blood Cells % (auto) 0.0 CBC/BMP Laboratory Tests 06/07/18 06:36 Red Blood Count 3.50 L, Mean Corpuscular Volume 90.0, Mean Corpuscular Hemoglobin 29.1, Mean Corpuscular Hemoglobin Concent 32.4, Red Cell Distribution Width 14.3, Lymphocytes # (Auto) Microbiology Microbiology 06/01/18 Blood Culture - Final, Complete NO GROWTH AFTER 5 DAYS 06/01/18 Blood Culture - Final, Complete NO GROWTH AFTER 5 DAYS RADHA HALLMAN MD Jun 07, 2018 07:20
[2018-06-07 07:26] LABS: BLOOD UREA NITROGEN 26 MG/DL (7-18); CARBON DIOXIDE LEVEL 28 MEQ/L (21-32); CHLORIDE LEVEL 107 MEQ/L (98-107); CREATININE FOR GFR 0.66 MG/DL (0.55-1.30); GLOMERULAR FILTRATION RATE > 60.0 (>32); GLUCOSE, FASTING 77 MG/DL (70-100); SODIUM LEVEL 140 MEQ/L (136-145)
[2018-06-07 08:01] LABS: ATYPICAL LYMPH 2 % (0-5); LYMPHOCYTES 85 % (16-52); NEUTROPHILS 13 % (35-75)
[2018-06-07 08:02] LABS: PLATELET ESTIMATE NORMAL (NORMAL)
[2018-06-07] MEDS: PANTOPRAZOLE 40MG TAB (PROTONIX) PO SCH (09:03)
[2018-06-07] MEDS: ENOXAPARIN 30 MG/0.3 ML SYR (J1650) SC SCH (09:03)
[2018-06-07] MEDS: predniSONE 5 MG TAB PO SCH (09:03)
[2018-06-07] MEDS: DONEPEZIL 5 MG TAB PO SCH (09:03)
[2018-06-07 22:00] VITALS: BP 144/69
[2018-06-08 06:00] VITALS: BP 149/68
[2018-06-08 06:37] LABS: HEMATOCRIT 30.5 % (36.0-47.0); HEMOGLOBIN 9.9 g/dl (12.0-15.5); MEAN CORPUSCULAR HEMOGLOBIN 29.5 pg (27.0-33.0); MEAN CORPUSCULAR HGB CONC 32.5 g/dl (32.0-36.5); MEAN CORPUSCULAR VOLUME 90.8 fl (80.0-96.0); PLATELET COUNT, AUTOMATED 432 10^3/uL (150-450); RED BLOOD COUNT 3.36 10^6/uL (4.00-5.40)
[2018-06-08 06:50] LABS: BLOOD UREA NITROGEN 24 MG/DL (7-18); CARBON DIOXIDE LEVEL 27 MEQ/L (21-32); CHLORIDE LEVEL 107 MEQ/L (98-107); CREATININE FOR GFR 0.73 MG/DL (0.55-1.30); GLOMERULAR FILTRATION RATE > 60.0 (>32); GLUCOSE, FASTING 78 MG/DL (70-100); POTASSIUM SERUM 4.8 MEQ/L (3.5-5.1); SODIUM LEVEL 141 MEQ/L (136-145)
[2018-06-08 07:05] LABS: WHITE BLOOD COUNT 34.5 10^3/uL (4.0-10.0)
[2018-06-08 07:07] LABS: LYMPHOCYTES 82 % (16-52); MONOCYTES 2 % (0-8); NEUTROPHILS 16 % (35-75)
[2018-06-08 07:08] LABS: PLATELET ESTIMATE INCREASED (NORMAL)
[2018-06-08 07:11] LABS: SMUDGE CELLS 2+
[2018-06-08] MEDS: predniSONE 5 MG TAB PO SCH (08:29)
[2018-06-08] MEDS: PANTOPRAZOLE 40MG TAB (PROTONIX) PO SCH (08:29)
[2018-06-08] MEDS: ENOXAPARIN 30 MG/0.3 ML SYR (J1650) SC SCH (08:29)
[2018-06-08] MEDS: DONEPEZIL 5 MG TAB PO SCH (08:29)
[2018-06-08 14:00] VITALS: BP 128/62
--- NOTE | 2018-06-08 14:08 | IPNPDOC ---
Date Seen The patient was seen on 06/08/18. Progress Note awaiting placement no other acute issues plan: change to alc pfs and family to decide on disposition: home w services vs snf [facility]. VS, I&O, 24H, Fishbone Vital Signs/I&O Vital Signs Date Time Temp Pulse Resp B/P (MAP) Pulse Ox O2 Delivery O2 Flow Rate FiO2 06/08/18 06:00 98.0 62 20 149/68 (95) 96 I&O- Last 24 Hours up to 6 AM 06/08/18 06:00 Intake Total 620 ml Balance 620 ml Laboratory Data 24H LABS Laboratory Tests 2 06/07/18 16:26: Bedside Glucose (Misc Panel) 126H 06/08/18 06:07: White Blood Count 34.5*H, Red Blood Count 3.36L, Hemoglobin 9.9L, Hematocrit 30.5L, Mean Corpuscular Volume 90.8, Mean Corpuscular Hemoglobin 29.5, Mean Corpuscular Hemoglobin Concent 32.5, Red Cell Distribution Width 14.3, Platelet Count 432, Lymphocytes # (Auto) , Nucleated Red Blood Cells % (auto) 0.0, Neutrophils 16L, Lymphocytes (Manual) 82H, Monocytes (Manual) 2, Smudge Cells 2+, Platelet Estimate INCREASED, Red Blood Cell Morphology NORMAL, Anion Gap 7L, Glomerular Filtration Rate > 60.0, Blood Urea Nitrogen 24H, Creatinine 0.73, Sodium Level 141, Potassium Level 4.8, Chloride Level 107, Carbon Dioxide Level 27, Calcium Level 8.0L CBC/BMP Laboratory Tests 06/08/18 06:07 Red Blood Count 3.36 L, Mean Corpuscular Volume 90.8, Mean Corpuscular Hemoglobin 29.5, Mean Corpuscular Hemoglobin Concent 32.5, Red Cell Distribution Width 14.3, Lymphocytes # (Auto) , Calcium Level 8.0 L Microbiology Microbiology 06/01/18 Blood Culture - Final, Complete NO GROWTH AFTER 5 DAYS 06/01/18 Blood Culture - Final, Complete NO GROWTH AFTER 5 DAYS RADHA HALLMAN MD Jun 08, 2018 14:08
[2018-06-09 06:00] VITALS: BP 149/68
[2018-06-09 06:48] LABS: HEMATOCRIT 34.9 % (36.0-47.0); HEMOGLOBIN 10.8 g/dl (12.0-15.5); MEAN CORPUSCULAR HEMOGLOBIN 28.9 pg (27.0-33.0); MEAN CORPUSCULAR HGB CONC 30.9 g/dl (32.0-36.5); MEAN CORPUSCULAR VOLUME 93.3 fl (80.0-96.0); PLATELET COUNT, AUTOMATED 546 10^3/uL (150-450); RED BLOOD COUNT 3.74 10^6/uL (4.00-5.40)
[2018-06-09 07:04] LABS: WHITE BLOOD COUNT 40.2 10^3/uL (4.0-10.0)
[2018-06-09 07:10] LABS: BLOOD UREA NITROGEN 23 MG/DL (7-18); CALCIUM LEVEL 8.2 MG/DL (8.8-10.2); CARBON DIOXIDE LEVEL 29 MEQ/L (21-32); CHLORIDE LEVEL 106 MEQ/L (98-107); CREATININE FOR GFR 0.82 MG/DL (0.55-1.30); GLOMERULAR FILTRATION RATE > 60.0 (>32); GLUCOSE, FASTING 76 MG/DL (70-100); POTASSIUM SERUM 4.8 MEQ/L (3.5-5.1); SODIUM LEVEL 140 MEQ/L (136-145)
[2018-06-09 07:37] LABS: ANISOCYTOSIS 1+; ATYPICAL LYMPH 3 % (0-5); LYMPHOCYTES 81 % (16-52); MONOCYTES 1 % (0-8); NEUTROPHILS 15 % (35-75); PLATELET ESTIMATE INCREASED (NORMAL); SMUDGE CELLS 1+
[2018-06-09] MEDS: predniSONE 5 MG TAB PO SCH (10:44)
[2018-06-09] MEDS: ENOXAPARIN 30 MG/0.3 ML SYR (J1650) SC SCH (10:44)
[2018-06-09] MEDS: DONEPEZIL 5 MG TAB PO SCH (10:45)
[2018-06-09] MEDS: PANTOPRAZOLE 40MG TAB (PROTONIX) PO SCH (10:45)
[2018-06-09 14:00] VITALS: BP 148/65
[2018-06-10 06:00] VITALS: BP 152/64
[2018-06-10 06:45] LABS: MEAN CORPUSCULAR HGB CONC 31.3 g/dl (32.0-36.5); MEAN CORPUSCULAR VOLUME 92.8 fl (80.0-96.0); PLATELET COUNT, AUTOMATED 504 10^3/uL (150-450); RED BLOOD COUNT 3.45 10^6/uL (4.00-5.40)
[2018-06-10 06:49] LABS: CREATININE FOR GFR 0.98 MG/DL (0.55-1.30); GLOMERULAR FILTRATION RATE 56.9 (>32)
[2018-06-10 07:08] LABS: WHITE BLOOD COUNT 34.8 10^3/uL (4.0-10.0)
[2018-06-10 07:49] LABS: ATYPICAL LYMPH 4 % (0-5); LYMPHOCYTES 76 % (16-52); MONOCYTES 1 % (0-8); NEUTROPHILS 17 % (35-75); PLATELET ESTIMATE INCREASED (NORMAL); SMUDGE CELLS 1+
[2018-06-10 07:50] LABS: ANISOCYTOSIS 1+
[2018-06-10] MEDS: DONEPEZIL 5 MG TAB PO SCH (09:35)
[2018-06-10] MEDS: predniSONE 5 MG TAB PO SCH (09:36)
[2018-06-10] MEDS: ENOXAPARIN 30 MG/0.3 ML SYR (J1650) SC SCH (09:36)
[2018-06-10] MEDS: PANTOPRAZOLE 40MG TAB (PROTONIX) PO SCH (09:36)
[2018-06-10 14:00] VITALS: BP 109/59
[2018-06-11 06:00] VITALS: BP 143/62
[2018-06-11] MEDS: DONEPEZIL 5 MG TAB PO SCH (09:09)
[2018-06-11] MEDS: predniSONE 5 MG TAB PO SCH (09:09)
[2018-06-11] MEDS: PANTOPRAZOLE 40MG TAB (PROTONIX) PO SCH (09:09)
[2018-06-11] MEDS: ENOXAPARIN 30 MG/0.3 ML SYR (J1650) SC SCH (09:10)
[2018-06-11 12:39] LABS: HEMATOCRIT 36.8 % (36.0-47.0); MEAN CORPUSCULAR HEMOGLOBIN 28.9 pg (27.0-33.0); MEAN CORPUSCULAR HGB CONC 29.9 g/dl (32.0-36.5); MEAN CORPUSCULAR VOLUME 96.6 fl (80.0-96.0); PLATELET COUNT, AUTOMATED 582 10^3/uL (150-450); RED BLOOD COUNT 3.81 10^6/uL (4.00-5.40)
[2018-06-11 13:06] LABS: WHITE BLOOD COUNT 44.4 10^3/uL (4.0-10.0)
[2018-06-11 13:29] LABS: CALCIUM LEVEL 8.1 MG/DL (8.8-10.2); CREATININE FOR GFR 0.96 MG/DL (0.55-1.30); GLOMERULAR FILTRATION RATE 58.3 (>32); POTASSIUM SERUM 4.4 MEQ/L (3.5-5.1)
[2018-06-11 22:00] VITALS: BP 110/56
[2018-06-12 06:00] VITALS: BP 137/62
[2018-06-12] MEDS: PANTOPRAZOLE 40MG TAB (PROTONIX) PO SCH (08:43)
[2018-06-12] MEDS: predniSONE 5 MG TAB PO SCH (08:43)
[2018-06-12] MEDS: DONEPEZIL 5 MG TAB PO SCH (08:43)
[2018-06-12] MEDS: ENOXAPARIN 30 MG/0.3 ML SYR (J1650) SC SCH (08:44)
[2018-06-12] MEDS ORDERED: PRED5TA PO (11:47)
--- NOTE | 2018-06-17 17:07 | DS.PDOC ---
Discharge Summary General Date of Admission Jun 04, 2018 at 14:06 Date of Discharge 06/12/2018 Discharge Summary PROCEDURES PERFORMED DURING STAY: [None]. ADMITTING DIAGNOSES / DISCHARGE DIAGNOSES: Weakness and Falls - likely 2/2 generalized deconditioning and severe kyphoscoliosis, possible component of dementia Dementia Protein Calorie malnutrition - likely 2/2 Age and dementia CLL Fibromyalgia and polymyalgia rheumatica Diabetes CAD with h/o CABG Hyperlipidemia GERD DVT prophylaxis COMPLICATIONS/CHIEF COMPLAINT: Weakness HISTORY OF PRESENT ILLNESS: This is an 87-year-old female with a past medical history of dementia, hypertension, diabetes, hyperlipidemia, coronary artery disease, status post coronary artery bypass graft (CABG), history of chronic lymphocytic leukemia (CLL), fibromyalgia, polymyalgia rheumatica, chronic low back pain who presents to the emergency room after being found by her daughter on the floor. Apparently, she did not fall. She said she felt so weak that she let herself down on the floor, because she was afraid of falling. She has fallen once approximately 3 weeks ago but since then has been having these multiple events where she would lie on the ground, because she cannot move. She was admitted for weakness, difficulty in ambulation and recent history of falls. HOSPITAL COURSE: Weakness and Falls - likely 2/2 generalized deconditioning and severe kyphoscoliosis, possible component of dementia - Patient has experienced multiple falls in the past - Recent episode, now was not apparently a fall - CT head 3: 1. Old bilateral basal ganglia lacunar infarctions. 2. Small vessel ischemic disease. 3. Mild volume loss. - CT cervical spine 3: 1. There is no acute fracture or subluxation. 2. There is cervical spondylosis at the C2-3 through C6-7 levels. - CT lumbar spine 3/: 1. Age-related osteopenia with moderate to advanced multilevel degenerative spondylosis. There is no evidence for acute fracture / compression injury or subluxation. 2. Consider MRI for further more definitive evaluation if symptoms persist. - Patient is continue with physical therapy and occupational therapy; has been cleared for discharge Dementia - continue home medication Protein Calorie malnutrition - likely 2/2 Age and dementia - encourage ora intake will offer ensure. CLL - Has chronically elevated WBC which is now higher; however platelet count remains stable; HH with slight drop. Fibromyalgia and polymyalgia rheumatica - continue prednisone. Diabetes - sugars well controlled. Off metformin - will dc insulin CAD with h/o CABG - no issues at present - echo reviewed. Hyperlipidemia - probably not an issue at present due to malnutrition - will not give any statin. GERD - will continue PPI DVT prophylaxis - has been ordered DISCHARGE MEDICATIONS: Please see below. ALLERGIES: Please see below. PHYSICAL EXAMINATION ON DISCHARGE: Vitals (See below) General: Lying in bed, no acute distress, comfortable, Awake / Alert HEENT: NC, AT CVS: RRR, +S1S2 Lungs: Fair air entry b/l, -w/r/r Abdomen: Soft, ND, NT Extremities: - Edema, - Calf tenderness LABORATORY DATA: Please see below. ACTIVITY: [As tolerated]. DISCHARGE PLAN: Follow-up with Dr. Carter within 7 days Remain compliant with treatment plan and medications Return to the ER if you experience any problems DISPOSITION: Home, Self-Care. DISCHARGE CONDITION: [Stable]. TIME SPENT ON DISCHARGE: Greater than [35] minutes. Vital Signs/I&Os Vital Signs Date Time Temp Pulse Resp B/P (MAP) Pulse Ox O2 Delivery O2 Flow Rate FiO2 06/12/18 06:00 97.0 61 18 137/62 (87) 96 Discharge Medications Scheduled Donepezil Hcl (Donepezil HCl) 5 Mg Tab, 5 MG PO DAILY, (Reported) Metformin Hydrochloride (Metformin HCl) 500 Mg Tab, 500 MG PO BID, (Reported) Pantoprazole Sodium (Pantoprazole Sodium) 40 Mg Tab, 40 MG PO DAILY, (Reported) Prednisone (Prednisone) 5 Mg Tab, 5 MG PO DAILY Allergies Coded Allergies: Statins (Verified Adverse Reaction, Severe, 10/17/13) JACOB RENTERIA MD Jun 17, 2018 17:07
== END 2018-06-12 13:35 | disposition home or self-care (01) | DRG 92 ==
LOC: M ED 12:48 → M ED INP 18:03 → M MS5PR 20:50 → OBSVTOIN 06-04 14:06 → INTOOBSV 06-04 14:06
PROVIDERS: ADMIT Internal Medicine; ATTEND Internal Medicine
DX: R29.6 Repeated falls (principal); C91.10 Chronic lymphocytic leukemia of B-cell type not having achieved remission; E46 Unspecified protein-calorie malnutrition; M41.9 Scoliosis, unspecified; F03.90 Unspecified dementia, unspecified severity, without behavioral disturbance, psychotic disturbance, mood disturbance, and anxiety; M79.7 Fibromyalgia; K21.9 Gastro-esophageal reflux disease without esophagitis; E78.5 Hyperlipidemia, unspecified; I25.10 Atherosclerotic heart disease of native coronary artery without angina pectoris; Z95.1 Presence of aortocoronary bypass graft; E11.9 Type 2 diabetes mellitus without complications; M35.3 Polymyalgia rheumatica; M62.81 Muscle weakness (generalized); M54.5 Low back pain; Z79.899 Other long term (current) drug therapy; Z79.52 Long term (current) use of systemic steroids

== ENCOUNTER 2018-07-22 20:06 | Emergency (ER) | payer MEDICARE ==
[~2018-07-22] VITALS: Ht 160 cm; Wt 52.0 kg
[~2018-07-22 20:06] MED LIST changes: -/PANT40TA OR; -ASPI1TAB PO; +ASPI81TA26 PO; -CEFT1INJ3 INJ; +CEFT1INJ5 INJ; +PROT1TAB2 OR
[2018-07-22] MEDS ORDERED: NS 1,000 ML IV SCH (20:23)
[2018-07-22] MEDS ORDERED: IPRATROPIUM 0.5MG/ALBUTEROL 2.5MG INH SOL UD 3ML (DUONEB)(J7620) NEB ONE (20:30)
[2018-07-22 20:54] LABS: HEMATOCRIT 33.3 % (36.0-47.0); HEMOGLOBIN 10.6 g/dl (12.0-15.5); MEAN CORPUSCULAR HEMOGLOBIN 29.3 pg (27.0-33.0); MEAN CORPUSCULAR HGB CONC 31.8 g/dl (32.0-36.5); PLATELET COUNT, AUTOMATED 248 10^3/uL (150-450); RED BLOOD COUNT 3.62 10^6/uL (4.00-5.40)
[2018-07-22 20:58] LABS: WHITE BLOOD COUNT 17.5 10^3/uL (4.0-10.0)
[2018-07-22 21:19] LABS: CALCIUM LEVEL 7.9 MG/DL (8.8-10.2); CREATININE FOR GFR 1.19 MG/DL (0.55-1.30); GLOMERULAR FILTRATION RATE 45.5 (>32); POTASSIUM SERUM 4.4 MEQ/L (3.5-5.1)
[2018-07-22 21:24] LABS: ATYPICAL LYMPH 11 % (0-5); EOSINOPHILS 1 % (0-5); INFLUENZA A AMPLIFICATION NEGATIVE (NEGATIVE); INFLUENZA B AMPLIFICATION NEGATIVE (NEGATIVE); LYMPHOCYTES 39 % (16-52); METAMYELOCYTES 2 % (0-0); NEUTROPHILS 43 % (35-75); PLATELET ESTIMATE NORMAL (NORMAL)
[2018-07-22 21:25] LABS: ANISOCYTOSIS 1+; OVALOCYTES 1+; POIKILOCYTOSIS 1+; SMUDGE CELLS 2+
[2018-07-22] MEDS ORDERED: LEVO250T12 PO (21:58)
[2018-07-22] MEDS ORDERED: LevoFLOXacin 500 MG TABLET PO ONE (22:00)
[2018-07-22 22:45] VITALS: BP 106/52
--- NOTE | 2018-07-23 08:44 | REP ---
Portable chest x-ray: Single view. History: Dyspnea and cough. Comparison study: March 13, 2018. Findings: The patient is status post prior median sternotomy. Mediastinal clips and right coronary artery stent material are visualized. The heart is not enlarged. There is diffuse osteopenia. There is a ill-defined nodular opacity in the left lung apex. A left apical neoplastic nodule or mass is suspected. This measures up to 3.2 cm in diameter. Interstitial infiltrate is seen in the right upper lobe which may be pneumonia. The pleural angles are sharp. Impression: 3 cm mass lesion in the left apex. Interstitial infiltrate in the right upper lobe may represent pneumonia. Consider chest CT. Electronically Signed by Baltazar Miller MD 07/23/2018 08:35 A
--- NOTE | 2018-07-24 14:20 | ED PDOC ---
Post-Departure Follow-Up dr jacobo faxed formal report of cxr for fu . also pt sent certified letter re kian kebede on cxr for fu Librado Taylor MD Jul 24, 2018 14:20
== END 2018-07-22 23:09 | disposition home or self-care (01) ==
LOC: M ED 20:06 → EDBD 20:06 → M ED 23:09
DX: J18.9 Pneumonia, unspecified organism (principal); R91.8 Other nonspecific abnormal finding of lung field; C91.10 Chronic lymphocytic leukemia of B-cell type not having achieved remission; J20.9 Acute bronchitis, unspecified; E11.9 Type 2 diabetes mellitus without complications; I12.9 Hypertensive chronic kidney disease with stage 1 through stage 4 chronic kidney disease, or unspecified chronic kidney disease; N18.9 Chronic kidney disease, unspecified; Z88.8 Allergy status to other drugs, medicaments and biological substances; Z79.899 Other long term (current) drug therapy